=== PATIENT | male | born 1960 | race Caucasian/White ===

== ENCOUNTER 2019-02-22 18:25 | Inpatient (IN) | payer OTHER ==
[~2019-02-22] VITALS: Ht 167.6 cm; Wt 48.1 kg
[2019-02-22 19:15] VITALS: BP_SYST 106
--- NOTE | 2019-02-22 19:42 | NUR ---
Patient to ER bed H1 to gown for evaluation. Side rails up.
--- NOTE | 2019-02-22 20:59 | NUR ---
PT MOVED TO ROOM 7.
--- NOTE | 2019-02-22 21:16 | NUR ---
Patient brought to ED via ambulance for complaint of fall today in AM. Mother states that since fall, ric has been experiencing increased shaking. No report of KO. 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 Patient reported to have stopped walking 2 weeks ago and has been spitting out food x1 week ago. Mother is primary vp sales and states it has become increasingly difficult to care for patient. Patient noted to be cachectic.
--- NOTE | 2019-02-22 21:22 | NUR ---
ER MD Sarmiento at bedside for medical evaluation.
[2019-02-22] MEDS ORDERED: PIPERACILLIN/TAZO 3.375 GM in NS 50 ML IV ONE (21:30)
[2019-02-22] MEDS ORDERED: NACL 0.9% 1,000 ML IV ONE (21:30)
--- NOTE | 2019-02-22 21:36 | NUR ---
# 18 gauge angiocath placed to RAC. Use of asceptic technique. Opsite placed over site. Blood return noted. Blood for lab drawn from site. Flushed with 10 cc of normal saline. No evidence of infiltration noted. Patient tolerated well.
[2019-02-22 22:05] LABS: BASOPHILS % (AUTO) 0.4 % (0.0-2.0); EOSINOPHILS % (AUTO) 0.1 % (0.0-4.0); HEMOGLOBIN 13.4 g/dL (14.0-18.0); LYMPHOCYTES # (AUTO) 1.2 K/uL (1.0-5.5); LYMPHOCYTES % (AUTO) 18.4 % (20.5-51.5); MEAN CORPUSCULAR HEMOGLOBIN 34 pg (27-31); MEAN CORPUSCULAR HGB CONC 34 % (32-36); MEAN CORPUSCULAR VOLUME 97 fL (79.0-98.0); MONOCYTES # (AUTO) 0.4 K/uL (0.0-1.0); MONOCYTES % (AUTO) 5.9 % (1.7-9.3); NEUTROPHILS % (AUTO) 75.2 % (40.0-70.0); PLATELET COUNT (AUTO) 309 K/uL (130-430); RED BLOOD CELL COUNT(AUTO) 4.01 MIL/uL (4.2-6.2); RED CELL DISTRIBUTION WIDTH 14.3 % (9.0-15.0); WHITE BLOOD COUNT (AUTO) 6.6 K/uL (4.8-10.8)
[2019-02-22] MEDS ORDERED: PIPERACILLIN/TAZOBACTAM 3.375 GM/VIAL (ZOSYN) IV ONE (22:06)
[2019-02-22 22:12] LABS: CALCIUM 9.2 mg/dL (8.4-11.0); CREATININE 0.92 mg/dL (0.55-1.30); POTASSIUM 4.6 mmol/L (3.5-5.1)
[2019-02-22 22:27] LABS: ALBUMIN 2.9 g/dL (3.4-4.8); THYROID STIMULATING HORMONE 10.26 uIu/mL (0.36-3.74); TOTAL BILIRUBIN 0.8 mg/dL (0.0-1.0)
[2019-02-22] MEDS ORDERED: LORazepam 2 MG/ML VIAL IVP ONE (22:45)
--- NOTE | 2019-02-22 23:16 | NUR ---
# 16 FR Ascencio catheter with use of sterile technique. Immediate return of 20 cc becky urine noted. Bedside drainage bag placed below level of bladder. Urine sample collected and sent to lab. Pt tolerated procedure well.
[2019-02-22 23:34] LABS: BILIRUBIN,URINE NEGATIVE (NEGATIVE); BLOOD, URINE NEGATIVE (NEGATIVE); CLARITY/URINE CLEAR (CLEAR); COLOR,URINE YELLOW (YELLOW); GLUCOSE,URINE NEGATIVE (NEGATIVE); KETONES,URINE NEGATIVE (NEGATIVE); LEUKOCYTE ESTERASE ,URINE NEGATIVE (NEGATIVE); NITRITE, URINE NEGATIVE (NEGATIVE); PH,URINE 5.5 (5.0-8.0); PROTEIN URINE NEGATIVE (NEGATIVE); UROBILINOGEN,URINE 0.2 (0.2-1.0)
[2019-02-22] MEDS ORDERED: LORA10TA7 PO (23:48)
[2019-02-22] MEDS ORDERED: SERT50TA12 PO (23:48)
[2019-02-22] MEDS ORDERED: BACL10TA PO (23:48)
--- NOTE | 2019-02-22 23:48 | NUR ---
Medication reconciliation completed with information provided by patient. Any prior medication reconciliation on file was reviewed and corrected.
--- NOTE | 2019-02-22 23:50 | NUR ---
End of life care decisions discussed with patient by Dr. Sarmiento. Opportunity for questions and concerns addressed. Patient's code status is FULL CODE, paperwork completed and placed in chart.
--- NOTE | 2019-02-23 | NUR ---
No adverse reactions noted after medication administration. Will continue to monitor.
--- NOTE | 2019-02-23 02:00 | NUR ---
Patient resting on gurney. No acute respiratory distress noted.
[2019-02-23] MEDS ORDERED: ACETAMINOPHEN 650 MG/20.3 ML UDC PO PRN (04:00)
--- NOTE | 2019-02-23 04:04 | NUR ---
Patient will be admitted to care of DR. MYLES. Admitted to TELEMETRY unit. Will go to room 135. Complete and up to date summary report printed. SBAR report to be given at bedside with opportunity for questions.
--- NOTE | 2019-02-23 05:00 | NUR ---
ADMISSION NOTE Received patient from ER via [facility]. Patient admitted with diagnosis of Augusta's disease, Failure to Thrive. Patient is awake, alert, oriented X2. Patient oriented to hospital room, call light, toileting, pain management and safety-teach back done. Patient informed that Melanie will be his nurse and that their room number is 132C. Personal belongings checked and Belongings List documented. Call light within reach.
[2019-02-23 05:27] VITALS: BP_SYST 104
--- NOTE | 2019-02-23 05:53 | NUR ---
Photographs taken of impaired skin integrity.
--- NOTE | 2019-02-23 05:55 | NUR ---
CONSULT: CONSULT CALLED FOR DR. PEREA. Ignacia I SPOKE WITH CHARISALLA LEBLANC REASON FOR CONSULT: MADISYN'S DISEASE REQUESTING CONSULT: DR. MYLES POST TRONIC MACHINE OPERATOR PHONE NUMBER: [phone]
--- NOTE | 2019-02-23 06:37 | NUR ---
CALLED/LEFT MESSAGE YOLANDA SPEECH THERAPIST FOR CONSULT.
--- NOTE | 2019-02-23 07:06 | NUR ---
Closing notes Patient is resting in bed, sleeping. No signs of distress noted. Breathing even and unlabored. IV patent and intact, no signs of infiltration noted. All needs met throughout the shift. Call light with the patient. Safety precautions in place. Will endorse care to day shift RN.
--- NOTE | 2019-02-23 07:30 | NUR ---
OPENING NOTES: RECEIVED PATIENT FROM PHYSICAL SECURITY SPECIALIST NURSE. PATIENT IS ASLEEP IN BED. NO SIGNS OF DISTRESS OR SHORTNESS OF BREATH NOTED. PATIENT IS TOLERATING OXYGEN AT ROOM AIR. IV SITE IS PATENT WITH NO SIGNS OF INFILTRATION. SANDERS CATHETER INTACT AND DRAINING BY GRAVITY. PATIENT IN STABLE CONDITION. SAFETY, FALL, ASPIRATION AND SEIZURE PRECAUTIONS ARE IN PLACE. BED IS LOCKED IN LOWEST POSITION WITH CALL LIGHT IN REACH. WILL CONTINUE TO MONITOR PATIENT FOR ANY CHANGES.
[2019-02-23] MEDS ORDERED: LEVOTHYROXINE SODIUM 0.05 MG TABLET PO ONE (07:45)
[2019-02-23 08:00] VITALS: BP_SYST 121
[2019-02-23] MEDS: SERTRALINE HCL 50 MG TABLET PO SCH (09:00)
[2019-02-23] MEDS: LORATADINE 10 MG TABLET PO SCH (09:00)
--- NOTE | 2019-02-23 10:05 | NUR ---
Nutrition Update Keith Scale 15 noted. Pt admitted for Ron's Disease and Failure to Thrive Diet: Odilon BMI: 16.9 kg/m2 RD to follow per nutrition care standards.
--- NOTE | 2019-02-23 10:14 | NUR ---
MD ROUNDS: DR. MYLES MAKING HER ROUNDS. AWARE OF PATIENT'S CONDITION. NEW ORDERS GIVEN.
--- NOTE | 2019-02-23 10:15 | NUR ---
RN ROUNDS: PATIENT IS AWAKE AND ALERT x2 LAYING DOWN IN BED. FAMILY AT BEDSIDE. NO SIGNS OF DISTRESS OR SHORTNESS OF BREATH NOTED. PATIENT IN STABLE CONDITION. WILL CONTINUE TO MONITOR PATIENT FOR ANY CHANGES.
--- NOTE | 2019-02-23 11:00 | NUR ---
DCPA and Band Sewer contact: ASSEMBLER SKYLIGHTS met with Pt. and mother at bedside for DCPA and Social Service contact. 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 He resides with his mother who is his full-time caregiver. Mother Mary stated that she is having difficulty with his care and is considering having him go in a SNF or B/C. Pt. has declined in his mobility during the last month, unsteady gait, he lost control of his BM, and has not been eating properly over the last week. Pt. has [employer] insurance, receives SSI, no IHSS, he has not accessed SNF/HH in the past. Care has always been at home . Pt. is unable to manage his ADLs independently. He has a wheelchair and walker at home but does not utilize it regularly. Pt. is pending swallow eval and further testing. CM, DCP, and SS will remain available as needed.
--- NOTE | 2019-02-23 11:30 | NUR ---
DCPA and Bunker Worker Contact ASSET ADMINISTRATOR met with Pt. and mother at bedside for DCPA and Social Service contact. 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 He resides with his mother who is his full-time caregiver. Mother Mary stated that she is having difficulty with his care and is considering having him go in a SNF or B/C. Pt. has declined in his mobility during the last month, unsteady gait, he lost control of his BM, and has not been eating properly over the last week. Pt. has [employer] insurance, receives SSI, he has not accessed SNF/HH in the past. Care has always been at home . Pt. is unable to manage his ADLs independently per mother due to decompensating. He has a wheelchair and walker at home but does not utilize it regularly. Pt. is pending swallow eval and further testing. No social service need or concern expressed at this time. CM, DCP, and SS will remain available as needed. Addendum: 02/23/19 at 1449 by Casie Roy LCSW Duplicate note entered in Error
[2019-02-23 12:15] VITALS: BP_SYST 132
[2019-02-23 12:21] VITALS: BP_SYST 132
--- NOTE | 2019-02-23 12:30 | NUR ---
RN ROUNDS: PATIENT IS AWAKE AND ALERT x2 LAYING DOWN IN BED. IV SITE IS PATENT WITH NO SIGNS OF INFILTRATION. PATIENT CLEANED AND TURNED. NO SIGNS OF DISTRESS OR SHORTNESS OF BREATH NOTED. PATIENT IN STABLE CONDITION. WILL CONTINUE TO MONITOR PATIENT FOR ANY CHANGES.
[2019-02-23] MEDS: POTASSIUM CHLORIDE 10 MEQ in NACL 0.9% 1,000 ML IV SCH (12:33)
--- NOTE | 2019-02-23 14:10 | NUR ---
RN ROUNDS: PATIENT IS AWAKE AND ALERT x2 LAYING DOWN IN BED. PATIENT DENIES ANY PAIN AT THE MOMENT. NO SIGNS OF DISTRESS OR SHORTNESS OF BREATH NOTED. PATIENT IN STABLE CONDITION. WILL CONTINUE TO MONITOR PATIENT FOR ANY CHANGES.
--- NOTE | 2019-02-23 15:31 | NUR ---
S.T. SWALLOW EVAL SWALLOW EVAL COMPLETED. 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 NO S/S OF ASPIRATION. REC: PUREE DIET. THIN LIQUIDS OK. ALLOW EXTRA TIME FOR MEALS. NURSE ROBEL NOTIED. [id number] CK G8997 CK G8998 CK NOMS LEVEL 4
--- NOTE | 2019-02-23 16:00 | NUR ---
RN ROUNDS: PATIENT IS AWAKE AND ALERT x2 LAYING IN BED ASKING WHEN THE NEUROLOGIST WILL BE COMING IN. I INFORMED THE PATIENT I DON'T HAVE A SPECIFIC TIME FRAME TO GIVE HIM. PATIENT PASSED THE SWALLOW EVALUATION AND ASKED FOR SOMETHING TO EAT. APPLESAUCE WAS GIVEN TO THE PATIENT AND HE TOLERATED IT WELL. SIPS OF WATER WERE ALSO GIVEN THROUGH A STRAW AND HE TOLERATED THAT WELL. NO SIGNS OF DISTRESS OR SHORTNESS OF BREATH NOTED. PATIENT IN STABLE CONDITION. WILL CONTINUE TO MONITOR PATIENT FOR ANY CHANGES.
[2019-02-23 16:13] VITALS: BP_SYST 95
--- NOTE | 2019-02-23 18:47 | NUR ---
CLOSING NOTES: PATIENT IS AWAKE AND ALERT x2 IN BED. FAMILY AT BEDSIDE. NO SIGNS OF DISTRESS OR SHORTNESS OF BREATH NOTED. PATIENT IS TOLERATING OXYGEN AT ROOM AIR. IV SITE IS PATENT WITH NO SIGNS OF INFILTRATION. SANDERS CATHETER INTACT AND DRAINING BY GRAVITY. PATIENT IN STABLE CONDITION. SAFETY, FALL, ASPIRATION AND SEIZURE PRECAUTIONS REMAINED IN PLACE THROUGHOUT THE SHIFT. BED IS LOCKED IN LOWEST POSITION WITH CALL LIGHT IN REACH. WILL ENDORSE PATIENT CARE TO ONCOMING VITICULTURIST NURSE.
--- NOTE | 2019-02-23 19:20 | NUR ---
RECEIVED REPORT ON PATIENT FROM 7AM CRISTEL HUSTON. PATIENT AA0X3, WITH DIFFICULTY SPEAKING DUE TO DISEASE PROCESS. SKIN W/D TO TOUCH, IV SITE INTACT NO S/S INFILTRATION, 20 G TO R AC, W/ IVPB INFUSING. FRANKLIN, W/ MARKED WEAKNESS, NAD NOTED.
[2019-02-23 20:19] VITALS: BP_SYST 112; BP_SYST 138
[2019-02-23] MEDS: BACLOFEN 10 MG TABLET PO PRN (21:49)
--- NOTE | 2019-02-23 22:00 | NUR ---
MED PASS, NSG ASSESSMENT COMPLETED. PT TOLERATED PO MEDS AND FLUIDS WELL WITH A SLOW PROCESS. TOSLING AND TURNING IN BED W / UNCONTROLLABLE MOVEMENTS, ASLEEP AT INTERVALS, NAD NOTED.
[2019-02-24] VITALS: BP_SYST 113
--- NOTE | 2019-02-24 01:00 | NUR ---
ON ROUNDS: IV IS OUT, PT ASLEEP AT PRESENT IN PRONE POSITION. RESTING QUIETLY
[2019-02-24] MEDS: POTASSIUM CHLORIDE 10 MEQ in NACL 0.9% 1,000 ML IV SCH ×2 (03:55→07:15)
--- NOTE | 2019-02-24 04:00 | NUR ---
NEW IV RE- INSERTED TO L UPPER ARM AND WRAPPED WITH KERLIX. PT TOLERATED WELL. IVF INFUSING PER ORDERS VIA IV PUMP.
[2019-02-24 04:11] VITALS: BP_SYST 129
--- NOTE | 2019-02-24 07:15 | NUR ---
PT ENDORSED TO ROBEL 7 AM RN. PT RESTING QUIETLY NAD NOTED. STATUS REMAINS UNCHANGED.
--- NOTE | 2019-02-24 07:30 | NUR ---
OPENING NOTES: RECEIVED PATIENT FROM PLACEMENT MANAGER NURSE. PATIENT IS AWAKE AND ALERT x2 LAYING DOWN IN BED. NO SIGNS OF DISTRESS OR SHORTNESS OF BREATH NOTED. PATIENT IS TOLERATING OXYGEN AT ROOM AIR. IV SITE IS PATENT WITH NO SIGNS OF INFILTRATION. SANDERS CATHETER INTACT AND DRAINING BY GRAVITY. PATIENT IN STABLE CONDITION. SAFETY, FALL, ASPIRATION AND SEIZURE PRECAUTIONS ARE IN PLACE. BED IS LOCKED IN LOWEST POSITION WITH CALL LIGHT IN REACH. WILL CONTINUE TO MONITOR PATIENT FOR ANY CHANGES.
[2019-02-24 08:00] VITALS: BP_SYST 140
[2019-02-24] MEDS: LEVOTHYROXINE SODIUM 0.05 MG TABLET PO SCH (08:07)
[2019-02-24] MEDS: SERTRALINE HCL 50 MG TABLET PO SCH (08:47)
[2019-02-24] MEDS: LORATADINE 10 MG TABLET PO SCH (08:47)
--- NOTE | 2019-02-24 10:05 | NUR ---
RN ROUNDS: PATIENT IS AWAKE AND ALERT x2 LAYING DOWN IN BED. NO SIGNS OF DISTRESS OR SHORTNESS OF BREATH NOTED. FAMILY AT BEDSIDE. PATIENT IN STABLE CONDITION. WILL CONTINUE TO MONITOR PATIENT FOR ANY CHANGES.
--- NOTE | 2019-02-24 11:40 | NUR ---
DC SANDERS: DISCONTINUED SANDERS PER DR. MYLES'S ORDERS. PATIENT TOLERATED WELL. WILL CONTINUE TO MONITOR PATIENT FOR ANY CHANGES.
--- NOTE | 2019-02-24 12:00 | NUR ---
DC PLANNING: BOB[facility] FAXED DC PLANNING ORDER FOR SNF FOR PT TO [facility] ([facility]) @ [phone], [phone]. PER [facility], CASE IS CURRENTLY BEING REVIEWED BY THEIR STILL PUMP OPERATOR. [facility] WILL CALL BACK IF IT IS APPROVED OR DENIED FOR SNF. Addendum: 02/24/19 at 1401 by Korina Shah RN RECEIVED A CALL FROM [facility] ( [facility]) STATING THEIR STILL PUMP OPERATOR HAS APPROVED FOR SNF AND TO TRY THE FOLLOWING [facility]ED [facility] [place]. IF ACCEPTED TO ONE OF THE SNF TO CONTACT [facility] AND SHE WILL PROVIDE FOR THE AUTHORIZATION. TRANSPORTATION AUTH [id number] AND TO USE [facility]. DCP MADE AWARE. Addendum: 02/24/19 at 1647 by Awilda SEGURA ELLIOT was contacted by Josefa at [facility] (f [phone]) [facility] ELLIOT faxed the full packet. TRANSPORTATION AUTH [id number] AND TO USE [facility] arraned for Will Call pending room number.ELLIOT lm for Adina to call nurse station with room number.
[2019-02-24 12:35] VITALS: BP_SYST 121
--- NOTE | 2019-02-24 14:19 | NUR ---
RN ROUNDS: PATIENT IS ASLEEP IN BED. NO SIGNS OF DISTRESS OR SHORTNESS OF BREATH NOTED. PATIENT IN STABLE CONDITION. WILL CONTINUE TO MONITOR PATIENT FOR ANY CHANGES.
[2019-02-24 16:30] VITALS: BP_SYST 101
--- NOTE | 2019-02-24 17:22 | NUR ---
Dietitian Recommendations * Continue pureed diet. tray comes standard w/ Ensure Enlive TID (ONS provides 1050 kcal/day, 60 gm protein/day) * Provide snacks BID (ice cream, applesauce, smoothie, pudding, yogurt) LP, RD Please refer to Nutrition Assessment for details. Signed: 02/24/19 at 1722 by Janie DUTTA <Co-Signature Required> Co-Signed: 02/24/19 at [address] Addendum: 02/24/19 at 1723 by Janie DUTTA Amended: Links added.
--- NOTE | 2019-02-24 18:59 | NUR ---
CLOSING NOTES: PATIENT IS ASLEEP LAYING DOWN IN BED. NO SIGNS OF DISTRESS OR SHORTNESS OF BREATH NOTED. PATIENT IS TOLERATING OXYGEN AT ROOM AIR. IV SITE IS PATENT WITH NO SIGNS OF INFILTRATION. PATIENT IN STABLE CONDITION. SAFETY, FALL, ASPIRATION AND SEIZURE PRECAUTIONS REMAINED IN PLACE THROUGHOUT THE SHIFT. BED IS LOCKED IN LOWEST POSITION WITH CALL LIGHT IN REACH. WILL ENDORSE PATIENT CARE TO ONCOMING EXPERIENCE DESIGNER NURSE.
--- NOTE | 2019-02-24 19:30 | NUR ---
RECEIVED REPORT FROM 7AM CRISTEL HUSTON. PATIENT AAOX3, SKIN W/D TO TOUCH, FRANKLIN W/ POS. PULSES AND MARKED WEAKNESS. SKIN W/ OLD SCRATCHES THAT ARE SELF INJURIOUS. PT W/ UNCONTROLLED INVOLUNTARY MOVEMENTS. BEDRIDDEN ABLE TO COMMUNICATE AND RESPOND TO SIMPLE CONVERSATION. PT IN NAD, WILL CONT TO MONITOR.
[2019-02-24 20:00] VITALS: BP_SYST 123
[2019-02-24] MEDS: HALOPERIDOL 1 MG TABLET (HALDOL) PO SCH (21:54)
--- NOTE | 2019-02-24 23:30 | NUR ---
MED PASS, NSG ASSESSMENT, PM CARE DONE W/ LINEN CHANGE, PT TOLERATED WELL. MADE COMFORTABLE, RESTING QUIETLY.
[2019-02-25 00:37] VITALS: BP_SYST 106
--- NOTE | 2019-02-25 01:20 | NUR ---
ON ROUNDS, NO CHANGE IN STATUS, PT ASLEEP, W/ INTERVALS OF INVOLUNTARY GROSS MOTOR MOVEMENTS. WILL CONT TO MONITOR FOR CHANGES.
--- NOTE | 2019-02-25 04:00 | NUR ---
ON ROUNDS PT AWAKE, COMPLETE BED BATH AND LINEN CHANGE DUE TO LARGE BM, AND INCT URINE OUTPUT. PATIENT TOLERATED WELL, AND SAID "THANK YOU". MADE COMFORTABLE.
[2019-02-25] MEDS: LEVOTHYROXINE SODIUM 0.05 MG TABLET PO SCH (07:02)
--- NOTE | 2019-02-25 07:30 | NUR ---
REPORT GIVEN TO CHEMA URBINA RN AT BEDSIDE. NO CHANGE IN PATIENT STAUS, AT PRESENT ASLEEP, IN NAD. PT IS PENDING D/C PLACEMENT TO A SNF.
[2019-02-25 08:00] VITALS: BP_SYST 154
--- NOTE | 2019-02-25 08:00 | NUR ---
ASSUMPTION OF CARE: RECEIVED PT AWAKE/ALERT/ORIENTED TO NAME SITUATION, DX:RISK FOR INJURY, R/T MADISYN'S DS, FAILURE TO THRIVE. NO S/S OF DISTRESS, HAS INVOLUNTARY MOVEMENT OF EXTREMITIES AND BODY, VSS, AFEBRILE, BREATH SOUNDS ARE CLEAR, BREATHING UNLABORED, FALL PRECAUTIONS IN PLACE, ORIENTED TO CALL LIGHT, PLACED WITHIN REACH, WILL CONT' WITH POC.
--- NOTE | 2019-02-25 09:30 | NUR ---
SCOWMAN: MORNING MEDS GIVEN, PER ORDERED BY Cole, TOLERATED WELL, WILL CONT' TO MONITOR AND ACCESS.
[2019-02-25] MEDS: SERTRALINE HCL 50 MG TABLET PO SCH (09:59)
[2019-02-25] MEDS: LORATADINE 10 MG TABLET PO SCH (09:59)
[2019-02-25] MEDS: HALOPERIDOL 1 MG TABLET (HALDOL) PO SCH ×3 (10:01→23:37)
--- NOTE | 2019-02-25 12:00 | NUR ---
NURSES NOTES: PT REMAINS STABLE, REPOSITIONED FOR COMFORT, NO S/S OF DISTRESS, ABLE TO COMMUNICATE NEEDS, CALL LIGHT WITHIN REACH, WILL CONT' WITH POC.
--- NOTE | 2019-02-25 12:18 | NUR ---
Case mgt: I rec'd order for dc to SNF--pt has not been in SNF prior to now--I called marielena (Luciana) at [facility] [phone]--they will have Rashida, their case briefer, call me back--YUAN FAM Addendum: 02/25/19 at 1321 by Randi Calabrese RN Case mgt: Lopez Field at [facility], contracted snfs are: [facility], [facility]--I faxed to [facility] fax#[phone] lopez Barrett at [facility] [phone]--YUAN FAM
[2019-02-25 12:55] VITALS: BP_SYST 101
--- NOTE | 2019-02-25 15:00 | NUR ---
NURSES NOTES: PT IN BED, HAVING IN INVOLUNTARY MOVEMENT OF EXTREMITIES, RESPONSIVE TO VERBAL STIMULI, ANSWERS QUESTIONS APPROPRIATELY, IS COOPERATIVE WITH TX, REORIENTED TO CALL LIGHT, PLACED WITHIN REACH, NEEDS MET, WILL CONT' TO MONITOR AND ASSESS.
--- NOTE | 2019-02-25 15:13 | NUR ---
Case mgt: [facility] cannot take pt--I reviewed notes and found that referral was also made to [facility] and that Adina had received auth from [facility]--I called [facility] nursing station at [phone]-S/W Maira-I explained that [facility] had given the auth to Adina, and that I needed the bed #--Maira will have Adina call me back-YUAN FAM Addendum: 02/25/19 at 1630 by Randi Calabrese RN I called [facility] again at [phone]--no call back from Adina yet--s/w utilities and maintenance supervisor Aylin regarding transfer--still waiting to get bed#-Aylin will call her DON as per our documentation, they received the authorization from [facility] already--I will update charge nurse Angela and take transfer packet to nursing station.
--- NOTE | 2019-02-25 18:00 | NUR ---
END OF SHIFT: PT REMAINS STABLE, NO SIGNIFICANT CHANGES NOTED, CALL LIGHT PLACED WITHIN REACH, WILL CONT' TO MONITOR AND ASSESS, WILL ENDORSE TO ASSEMBLER CHASSIS NURSE.
--- NOTE | 2019-02-25 19:20 | NUR ---
initial notes: pt is on bed alert awake, oriented x 3, no pain,no sob.stable vital sign. uncontrolled movement due pt condition. iv lock to left ac- intact and patent. pt has multiple scabs. pt is incontinent of bnb. try to explain plan opf care to pt. unable to due pt condition. needs attended. call light in reach. padded rails up. low bed position. will monitor.
[2019-02-25 19:30] VITALS: BP_SYST 116
--- NOTE | 2019-02-25 22:00 | NUR ---
pt is awake alert, no distress, uncontrolled movement. stable. safety on. will monitor.
--- NOTE | 2019-02-26 | NUR ---
sleeping, quietly, no pain. not distress. no uncontrolled movement. stable. will monitor.
[2019-02-26 00:44] VITALS: BP_SYST 109
--- NOTE | 2019-02-26 02:00 | NUR ---
resting, comfortable. stable. no uncontrolled movement. safety on. will monitor.
--- NOTE | 2019-02-26 04:00 | NUR ---
sleeping, comfortable. no sob. not distress. stable. safety on. padded rails up. will monitor.
--- NOTE | 2019-02-26 06:00 | NUR ---
pt is awake, alert. clean by hat blockerchuy carrion, stable. needs attended. safety on. bed alarm on. brianna monitor.
[2019-02-26] MEDS: LEVOTHYROXINE SODIUM 0.05 MG TABLET PO SCH (06:08)
--- NOTE | 2019-02-26 07:10 | NUR ---
closing: pt is awake, alert. uncontrolled movement seen, stable. needs attended the whole shift, iv lock intact, safety on. low be positiotn and lock and alarm. bedside report given to am rn.
[2019-02-26 08:00] VITALS: BP_SYST 110
--- NOTE | 2019-02-26 09:30 | NUR ---
CLAY HOISTER: MORNING MEDS GIVEN, PER ORDERED BY Cole, TOLERATED WELL, WILL CONT' TO MONITOR AND ACCESS.
--- NOTE | 2019-02-26 10:21 | NUR ---
DC Planning: f/u for bed at [facility] [phone]: per Maira she will contact [facility] for the bed assignment. Addendum: 02/26/19 at 1349 by Rommel Alvarez RN I called [facility] again at [phone]--no call back from Adina yet--Per Josie she will call her DON at home for bed and admission today.
[2019-02-26] MEDS: SERTRALINE HCL 50 MG TABLET PO SCH (10:28)
[2019-02-26] MEDS: HALOPERIDOL 1 MG TABLET (HALDOL) PO SCH (10:28)
[2019-02-26] MEDS: LORATADINE 10 MG TABLET PO SCH (10:28)
[2019-02-26 12:00] VITALS: BP_SYST 92
--- NOTE | 2019-02-26 15:30 | NUR ---
VISIT: AT BEDSIDE FOR ASSESSMENT OF PT, NEW ORDERS GIVEN, WILL CONT' WITH POC. Addendum: 02/26/19 at 1646 by María Elena Camacho RN WRONG PT
[2019-02-26 16:30] VITALS: BP_SYST 111
--- NOTE | 2019-02-26 19:00 | NUR ---
END OF SHIFT: PT REMAINS STABLE, NO SIGNIFICANT CHANGES NOTED, CALL LIGHT PLACED WITHIN REACH, WILL CONT' TO MONITOR AND ASSESS, WILL ENDORSE TO ORGAN ASSEMBLER NURSE.
[2019-02-26 20:00] VITALS: BP_SYST 116
[2019-02-27 00:29] VITALS: BP_SYST 132
[2019-02-27 08:45] VITALS: BP_SYST 110
[2019-02-27] MEDS: LEVOTHYROXINE SODIUM 0.05 MG TABLET PO SCH (09:42)
[2019-02-27] MEDS: SERTRALINE HCL 50 MG TABLET PO SCH (09:42)
[2019-02-27] MEDS: LORATADINE 10 MG TABLET PO SCH (09:42)
[2019-02-27] MEDS: BACLOFEN 10 MG TABLET PO PRN (09:42)
[2019-02-27] MEDS: HALOPERIDOL 1 MG TABLET (HALDOL) PO SCH ×2 (09:47→21:56)
--- NOTE | 2019-02-27 10:24 | NUR ---
Discharge Planning: DCP followed up with at [facility] (f [phone] p [phone]) faxed updated PT notes. will follow up with Adina at [facility], bria stll taking patient. Addendum: 02/27/19 at 1439 by Awilda Medina DP Adina at [facility] declined. DCP spoke to at [facility] (f [phone] p [phone]) family looking fo humanities department chair, DCP will send faxed to [facility] and [facility]. ELIEP to follow up. Addendum: 02/27/19 at 1650 by Awilda Medina DP DCP spoke to Anabel (C [phone] p [phone]) at [facility] will give to DON to review.
[2019-02-27 12:37] VITALS: BP_SYST 98
--- NOTE | 2019-02-27 14:27 | NUR ---
Nutrition F/U RD reviewed pt's current EMR including diet Hx, physician notes, nursing notes, pertinent labs/meds/procedures, care trends and care activity. Current Diet Order: Pureed diet x 4 days Subjective information: Pt seen resting in bed, covered in blankets at time of visit earlier this morning. Per RN report, no N/V this morning. Patient is tolerating diet. Last BM 02/27. Per EMR, PO intake is good 90% average of 3 meals 02/26/. Current diet remains appropriate. Current PO intake: Good 90% average of 3 meals 02/26 Estimated Energy Expenditure (kcals/day) 8099-8625 kcal/day (30-35 kcal/kg IBW for wt promotion) Estimated Protein Required (g/day) 78-98 gm/day (1.2-1.5 kcal/kg IBW for wt promotion) Estimated Fluid Required (l/day) 2-2.3 L/day (1 mL/kcal/day for maintenance) Problem/Etiology/Signs/Symptoms Malnutrition related to possible suboptimal nutrient intake as evidenced by BMI of 16.9 kb/m2, 75% IBW, and thin appearance. (*ongoing) Expected Outcomes/Goals - Monitor appetite and PO intake w/ goals of pt meeting at least 85% of estimated nutritional needs, labs trending WNL, normal GI function, and skin integrity/ wt maintenance. Dietitian Recommendations * Continue pureed diet. tray comes standard w/ Ensure Enlive TID (ONS provides 1050 kcal/day, 60 gm protein/day) * Provide snacks BID (ice cream, applesauce, smoothie, pudding, yogurt) Follow Up High Risk: F/U in 2-3days
--- NOTE | 2019-02-27 14:30 | NUR ---
Dietitian Recommendations * Continue pureed diet. tray comes standard w/ Ensure Enlive TID (ONS provides 1050 kcal/day, 60 gm protein/day) * Provide snacks BID (ice cream, applesauce, smoothie, pudding, yogurt) SANTOS, RD
--- NOTE | 2019-02-27 14:38 | NUR ---
DC PLANNING Spoke w mother Mary, ph [phone], @ bedside. Agreeable w SNF for short term, any contracted w insurance. States after short term SNF is going to want pt to go to [facility] due to pt has declined in mobility past 3 months & is having hard time taking care of pt now. Lives in mobile home w 5 steps & pt now not able to ambulate. She is pt's primary caregiver. Per mother pt has Medi-venice also. Called & left msg w Patricia insurance examiner to check pt's Medi-venice. Updated dc case planner.
[2019-02-27 16:24] VITALS: BP_SYST 108
--- NOTE | 2019-02-27 19:08 | NUR ---
PHYSICAL THERAPY CO-SIGN The Physical Therapy Progress Notes documented by Fingernail Former have been reviewed. Reviewed/Co-Signed by: Debbie Boyd PT Documentation Done by:TONE BAZAN REVIEWED W/ ARASELI Addendum: 02/27/19 at 1909 by Debbie Boyd PT Amended: Links added.
--- NOTE | 2019-02-27 19:15 | NUR ---
CHANGE OF SHIFT; pt. awake, alert when received, gets restless and like thrashing himself in bed, especially when he moves. on seizure precautions, padded side rails. on fall risk precautions.
--- NOTE | 2019-02-27 20:30 | NUR ---
NOTES: pt. been trashing in bed, follow simple commands, verbally responsive but sometimes hard to understand. IV lock on left antecubital. pt. very skinny , bony parts appears reddened. moves a lot all extremities and stays on position. side rails up and padded.
[2019-02-27 21:00] VITALS: BP_SYST 101
--- NOTE | 2019-02-27 21:30 | NUR ---
NOTES: complete linen changed, gown and katarina care done with SWIFT TENDER, incontinent of urine and stool. repositioned. on fall risk precautions.
--- NOTE | 2019-02-27 23:00 | NUR ---
NOTES: pt. sleeping when checked, no acute distress. fall risk precautions observed.
[2019-02-28 00:22] VITALS: BP_SYST 99
--- NOTE | 2019-02-28 01:00 | NUR ---
NOTES: pt. sleeping but he's been all around the bed, fall risk precautions. padded side rails, bed alarm on for safety.
--- NOTE | 2019-02-28 03:00 | NUR ---
NOTES: condition unchanged. still thrashing in bed, keep bed alarm on for safety. continue to monitor.
--- NOTE | 2019-02-28 04:30 | NUR ---
NOTES: condition unchanged. sleeping on and off.
--- NOTE | 2019-02-28 06:00 | NUR ---
NOTES: pt. incontinent of urine and stool, kept clean and dry. bed alrm on. fall risk precautions.
--- NOTE | 2019-02-28 06:45 | NUR ---
CLOSING NOTES; pt. lready awake, instructed to sleep more, still thrashes in bed, no acute distress. IV lock patent.
[2019-02-28] MEDS: LEVOTHYROXINE SODIUM 0.05 MG TABLET PO SCH (07:01)
--- NOTE | 2019-02-28 07:35 | NUR ---
opening note patient is resting in bed, no signs of distress at this time, educated refrigerated national truck driver light system and plan of care, patient nodded head and said "okay" to me, IV dressing in tact with no IVF running, bed in lowest position, side rails up, call light within reach, fall/safety and aspiration precautions in place.
[2019-02-28 08:09] VITALS: BP_SYST 109
[2019-02-28] MEDS: HALOPERIDOL 1 MG TABLET (HALDOL) PO SCH ×2 (08:49→21:54)
[2019-02-28] MEDS: SERTRALINE HCL 50 MG TABLET PO SCH (08:49)
[2019-02-28] MEDS ORDERED: LORATADINE 10 MG TABLET PO PRN (09:00)
--- NOTE | 2019-02-28 10:25 | NUR ---
rounds patient is resting in bed, raising legs up and down, patient asked for some water and applesauce, no other needs at this time, fall/safety precautions in place, no signs of distress at this time.
[2019-02-28 12:00] VITALS: BP_SYST 102
--- NOTE | 2019-02-28 12:55 | NUR ---
fed patient patient is resting in bed, assisted patient with eating, patient tolerated well, fall/safety and aspiration precautions in place, no signs of distress at this time.
--- NOTE | 2019-02-28 14:05 | NUR ---
changed patient changed patient's gown, no other needs addressed at this time, fall/safety precautions in place.
--- NOTE | 2019-02-28 16:45 | NUR ---
rounds patient is resting in bed, raising legs up and down, no other needs at this time, fall/safety precautions in place, no signs of distress at this time.
[2019-02-28 16:50] VITALS: BP_SYST 114
[2019-02-28] MEDS ORDERED: FLU VACC QS2019-20 36MOS UP/PF 60 MCG/0.5 ML SYRINGE I.M. PRN (18:15)
--- NOTE | 2019-02-28 19:20 | NUR ---
CHANGE OF SHIFT; pt. awake, thrashing all over the bed, verbally responsive, on safety and seizure precautions. bed alarm on. will assess later.call light within reach.
--- NOTE | 2019-02-28 19:33 | NUR ---
closing note patient is resting in bed, no signs of distress at this time, IV dressing in tact with no IVF running, bed in lowest position, side rails up, call light within reach, fall/safety and aspiration precautions in place, will endorse report to noc shift nurse to continue with care.
--- NOTE | 2019-02-28 20:24 | NUR ---
PHYSICAL THERAPY CO-SIGN The Physical Therapy Progress Notes documented by Telecommunications Field Engineer have been reviewed. Reviewed/Co-Signed by: Debbie Boyd PT Documentation Done by:SAM SANTANA PTA PROGRESS MANAV Addendum: 03/01/19 at 1340 by Debbie Boyd PT Amended: Links added.
[2019-02-28 20:30] VITALS: BP_SYST 111
--- NOTE | 2019-02-28 20:30 | NUR ---
NOTES: VS checked. pt. keeps moving, incontinent of urine, SAP BUSINESS INTELLIGENCE CONSULTANT changed , kept dry. pt. reminded to keep still. for further observation.
--- NOTE | 2019-02-28 22:00 | NUR ---
NOTES: due med crushed with apple sauce and able to swallow. pt. needs attended. side rails padded for seizure precautions. bed alarm on.
[2019-03-01] VITALS: BP_SYST 147
--- NOTE | 2019-03-01 00:15 | NUR ---
NOTES: condition observed. been dozing on and off/ continuously moving in bed, set off bed alarm.
--- NOTE | 2019-03-01 02:30 | NUR ---
NOTES: continue to monitor, safety precautions, fall risk.
--- NOTE | 2019-03-01 04:17 | NUR ---
NOTES; pretty calm sleeping. condition unchanged.
--- NOTE | 2019-03-01 05:30 | NUR ---
NOTES: complete changed, katarina care, incontinent of urine. note skin reddened from thrashing in bed, applie Z juanita on both knees and leg, some skin excoriations and dry scabs. IV lock on left antecubital flushed.
--- NOTE | 2019-03-01 06:49 | NUR ---
CLOSING NOTES; pt. been sleeping on and off and thrashing all over the bed, side rails keep padded for seizure and fall precautions, bed alarm on. pt. room close to nurses station. for further care and assist, still waiting for placement. will endorse to day shift. call light at bedside, frequent rounds since pt. unable to use call light.
[2019-03-01] MEDS: LEVOTHYROXINE SODIUM 0.05 MG TABLET PO SCH (07:22)
--- NOTE | 2019-03-01 07:30 | NUR ---
opening note patient is resting in bed, no signs of distress at this time, educated juvenile probation officer light system and plan of care, patient nodded head and said "okay" to me, IV dressing in tact with no IVF running, bed in lowest position, side rails up, call light within reach, fall/safety and aspiration precautions in place.
[2019-03-01 08:00] VITALS: BP_SYST 126
[2019-03-01] MEDS: SERTRALINE HCL 50 MG TABLET PO SCH (08:40)
[2019-03-01] MEDS: HALOPERIDOL 1 MG TABLET (HALDOL) PO SCH ×2 (08:40→21:09)
[2019-03-01] MEDS: BACLOFEN 10 MG TABLET PO PRN (08:41)
--- NOTE | 2019-03-01 10:16 | NUR ---
rounds patient is resting in bed, tossing and turning, no signs of distress at this time, fall/safety precautions in place, no needs addressed at this time.
[2019-03-01 12:00] VITALS: BP_SYST 112
--- NOTE | 2019-03-01 12:34 | NUR ---
rounds patient is resting in bed, tossing and turning, no signs of distress at this time, fall/safety precautions in place, no needs addressed at this time.
--- NOTE | 2019-03-01 12:42 | NUR ---
DC PLANNING: BOBBY WITH DR. MLYES SPOKE WITH PATIENT'S MOTHER (MEETA) AT BEDSIDE REGARDING DC PLANNING. INFORMED PT'S MOTHER THAT NO SNF IS CURRENTLY ACCEPTING PATIENT AND INSURANCE IS ONLY COVERING HOSPITAL STAY UNTIL TODAY AND OPTION IS FOR PATIENT TO BE DISCHARGE TODAY HOME WITH HOME HEALTH. BOBBY EXPLAINED HOME HEALTH BENEFITS AND AFTER EXTENSIVE DISCUSSION WITH MOTHER, PATIENT'S MOTHER AGREED TO DISCHARGE PATIENT HOME WITH HOME HEALTH. PATIENT'S MOTHER WOULD LIKE PATIENT TO BE PLACED ON A NURSING FACILITY [facility]. HOWEVER, PATIENT DOES NOT HAVE ACTIVE MEDI-DENZEL. INFORMED PT MOTHER THAT REFERRAL TO MEDICAL WAS MADE TO SHIRIN AND [facility]ERON WOULD CONTACT HER FOR INFORMATION. PER MOTHER, PT IS RECEIVING ABOUT $2,000/MONTH FROM SOCIAL SECURITY. DISCUSS WITH MOTHER OPTION FOR A BOARD AND CARE THAT IS WITHIN HER BUDGET. BOBBY/NAN TO PROVIDE HER LIST OF BOARD AND CARE AROUND [place]. BOBBY SPOKE WITH [facility] (BOBBY @ [facility] @ REGARDING DC HOME WITH HOME HEALTH FOR PT. AND TO SETUP TRANSPORTATION. [facility] STATED SHE WILL CHECK IF THEY CAN APPROVED FOR TRANSPORTATION HOME. BOBBY FAXED DC ORDER FOR HOME WITH HOME HEALTH TO [facility] @
--- NOTE | 2019-03-01 13:00 | NUR ---
PT HAS BOTH LEGS IN AIR AND MOVING AROUND IN BED REDIRECTED PT
--- NOTE | 2019-03-01 13:40 | NUR ---
PHYSICAL THERAPY CO-SIGN The Physical Therapy Progress Notes documented by Supervisor Instrument Maintenance have been reviewed. Reviewed/Co-Signed by: Debbie Boyd PT Documentation Done by:SAM SANTANA HOGSHEAD HOOPER Addendum: 03/01/19 at 1341 by Debbie Boyd PT Amended: Links added.
--- NOTE | 2019-03-01 14:00 | NUR ---
PT HAS LEGS UP IN AIR AND SCOOTING TOWARDS FOOT OF BED TRYING TO PUT LEGS OVER RAIL REDIRECTED PT CHECK PT FOR LEIN CLEAN AND DRY GAVE FLUID TO PT
--- NOTE | 2019-03-01 14:28 | NUR ---
rounds patient is resting in bed, tossing and turning, no signs of distress at this time, fall/safety precautions in place, no needs addressed at this time.
--- NOTE | 2019-03-01 14:30 | NUR ---
DC PLANNING: TRANSPORTATION AUTH OBTAINED FROM [facility] (BOBBY @ [facility]) @ . AUTH # [id number]. CAN USE [facility] OR [facility]. HOWEVER, IF NOT BOTH NOT AVAILABLE CAN USE ANY AMBULANCE COMPANY HOSPITAL USED. PER [facility], SHE WILL CALL BACK FOR HOME HEALTH AGENCY NAME AND CONTACT NUMBER. TRANSPORTATION HAS BEEN SETUP WITH [facility] VIA BLS @ . SPOKE WITH JONNA (DISPATCH). AUTH NUMBER PROVIDED. BRIDGE WELDER TIME IS AT 8PM. BOBBY CONTACTED PATIENT'S MOTHER (BOONE) @ AND INFORMED HER THAT TRANSPORTATION IS SETUP FOR 8PM BRIDGE WELDER. ALSO, INFORMED HER THAT CM WILL LEAVE LIST OF BOARD AND CARE AND CAREGIVING AGENCY AT THE BEDSIDE TABLE AND WITH PATIENT'S DISCHARGE PACKET. Addendum: 03/01/19 at 1638 by Korina Shah RN BOBBY SPOKE WITH MUKUND [facility]ERINA [facility]HOURS AT [facility]) @ REGARDING HOME HEALTH SETUP. PER MUKUND, HOME HEALTH IS SETUP WITH [facility] @ P . BOBBY FAXED MUKUND UPDATED DC ORDER WITH HOME HEALTH FOR RN VISIT, PT VISIT AND HOME HEALTH AID. PER MUKUND, IT WILL STILL BE SAME HOME HEALTH ([facility] ). THEY WILL BE VISITING PATIENT AT HOME. PATIENT'S NURSE (OSVALDO) AND CHARGE NURSE NIDIA MADE AWARE OF THE DC HOME.
--- NOTE | 2019-03-01 15:00 | NUR ---
PT STILL MOVING AROUND IN BED PUTTING LEGS OVER RAIL PT WAS CLEANED AND DRY REDIRECTED PT NURSE AWARE
[2019-03-01] MEDS ORDERED: LEVO25TA7 PO (15:37)
[2019-03-01] MEDS ORDERED: HAL1 PO (15:38)
[2019-03-01 16:00] VITALS: BP_SYST 122
--- NOTE | 2019-03-01 16:18 | NUR ---
ROUNDS patient is resting in bed, gave him orange juice, patient tolerated well, no signs of distress at this time, no other needs addressed at this time, fall/safety and aspiration precautions in place.
--- NOTE | 2019-03-01 17:00 | NUR ---
PT THROWING LEGS OVER RAIL REDIRECTED PT CHANGE AND CLEAN PT PT CLAIM AND QUIET GAVE FLUIDS
--- NOTE | 2019-03-01 18:25 | NUR ---
FALL PATIENT FOUND LYING ON PRONE POSITION ON THE FLOOR, WITH BLEEDING NOTED ON THE RIGHT SIDE OF THE HEAD. ACCORDING TO ANDES LINE PILOT, SHE HEARD A LOUD NOISE IN ROOM 132 CLOSE TO THE NURSING STATION AND SAW PATIENT LYING ON THE FLOOR. PATIENT BACK TO BED WITH THE HELP OF SECURITY. VITAL SIGNS, ASSESSMENT DONE BY PRIMARY NURSE OSVALDO. NOTED WITH SLIGHT BLEEDING ON THE LEFT SIDE OF THE HEAD, SLIGHT REDNESS ON BOTH KNEE. PATIENT WAS STILL ALERT AND CONSCIOUS FOLLOWS COMMAND, ABLE TO MOVE AND BEND UPPER AND LOWER EXTREMITIES. NOTIFIED DR MYLES AND MADE AWARE OF RECENT FALL, TO HOLD DISCHARGE FOR NEUROLOGICAL OBSERVATION, CT HEAD, BILATERAL KNEE, SHOULDER, AND HIPS X RAY WAS ORDERED. FAMILY CAME AND MADE AWARE. PATIENT FOR NEUROLOGICAL CHECK.
--- NOTE | 2019-03-01 18:46 | NUR ---
Paged Dr. Wilson
--- NOTE | 2019-03-01 18:49 | NUR ---
Called [facility], spoke to [place], notified them that we are cancelling the transport for tonight, instead we are putting it on WILL CALL.
--- NOTE | 2019-03-01 19:15 | NUR ---
OPENING NOTES Receive report from morning shift nurse. Patient AOx1, family at bedside. Confusion is noted. Patient shakiness in upper and lower extremities noted. Patient has sitter at bedside. Patient has no signs of respiratory distress and discomfort noted. Status post fall, mild bleeding on the left side head is noted. Will put dressing on. Seizure pads in place. Call light with in reach. Bed locked and lowest position. Safety precautions in place. Will continue to monitor patient.
--- NOTE | 2019-03-01 19:20 | NUR ---
closing note, patient fell at 1825 patient was found on the floor raising his legs in the air, I was accompanied by other staff to assist the patient with getting up from the floor. The patient was able to state to me his name, , his age, and what his mom's name was. Patient was able to move all extremities and move his head side to side. Blood was noted on the floor and on my hand when holding the patient's head. Patient was lifted back onto the bed. Vitals were taken BP 120/86, HR 73, 93% O2, 97.4 temperature, respirations 20. I placed 4x4 gauzes where the site of bleeding came from. Bleeding was stopped after applying pressure. I grabbed a flashlight to try to look for a cut on his head, patient has a lot of hair and there was no more active bleeding come from the site. Redness was noted. Patient was able to keep following simple commands like raising his limbs, turning his body, telling me his name and and who he lives with. The mom and another family member came to the unit. I informed them of what happened. Dr Wilson was paged for orders for radiology tests and to hold discharge at this time. Ambulance was called to cancel pickup.
[2019-03-01 20:00] VITALS: BP_SYST 115
--- NOTE | 2019-03-01 21:09 | NUR ---
MED PASS Due medication given at this time. Patient tolerated well. Patient has no signs of respiratory distress and discomfort noted. Patient is cooperative with sitter at the bedside. Shakiness in upper and lower extremities is noted. Seizure pads in place. Safety precautions in place. bed alarm on. Will continue to monitor patient
--- NOTE | 2019-03-01 23:23 | NUR ---
RN ROUNDS Patient asleep at this time. No signs of respiratory distress and discomfort noted. Breathing even ad unlabored. Sitter at bedside. Safety precautions in place. Will continue to monitor patient.
[2019-03-02 01:51] VITALS: BP_SYST 115
--- NOTE | 2019-03-02 02:45 | NUR ---
RN ROUNDS Patient asleep. No signs of respiratory distress and discomfort noted. Breathing even ad unlabored. Sitter at bedside. Seizure pads in place. Safety precautions in place. Will continue to monitor patient.
--- NOTE | 2019-03-02 04:38 | NUR ---
RN ROUNDS Patient awake, lying in bed. With sitter at bedside. No signs of respiratory distress and discomfort noted. Breathing even ad unlabored. Seizure pads in place. Safety precautions in place. Will continue to monitor patient.
[2019-03-02] MEDS: LEVOTHYROXINE SODIUM 0.05 MG TABLET PO SCH (06:26)
--- NOTE | 2019-03-02 07:00 | NUR ---
CLOSING NOTES Patient awake. Patient AOx1, Confusion is noted. Patient has sitter at bedside. Patient has no signs of respiratory distress and discomfort noted. Seizure pads in place. Call light with in reach. Bed locked and lowest position. Safety precautions in place. All needs met throughout the shift. Will endorse to oncoming shift nurse.
--- NOTE | 2019-03-02 07:25 | NUR ---
Initial notes: Patient awake, alert and oriented x2. Stable. I.V access patent. Sitter at bedside. Call light within reach. Safety measures in placed. Report received at bedside.
[2019-03-02 08:18] VITALS: BP_SYST 99
[2019-03-02] MEDS: SERTRALINE HCL 50 MG TABLET PO SCH (09:01)
[2019-03-02] MEDS: HALOPERIDOL 1 MG TABLET (HALDOL) PO SCH (09:01)
--- NOTE | 2019-03-02 09:13 | NUR ---
rounds: Patient meds given crushed with apple sauce. patient compliant.
[2019-03-02 12:22] VITALS: BP_SYST 115
--- NOTE | 2019-03-02 14:20 | NUR ---
rounds: Patient resting on bed. No distress noted. Sitter at bedside.
--- NOTE | 2019-03-02 14:24 | NUR ---
Family Informed: Spoke to mother, Mary Palacio about the discharge order and ambulance will picker box operator the patient at 16:00. Mary will just wait in her house for the patient to come home.
[2019-03-02 14:35] VITALS: BP_SYST 115
--- NOTE | 2019-03-02 15:30 | NUR ---
DC PLANNING: SPOKE WITH JF (EPIC ANESTHESIA ANALYST @ [facility]) @ INFORM THAT PATIENT IS DISCHARGING TODAY. PER JF, THEY WILL HAVE PATIENT BE EVALUATED AT HOME WITHIN 48HOURS.
[2019-03-02 15:48] VITALS: BP_SYST 115
--- NOTE | 2019-03-02 16:11 | NUR ---
Discharge: Report given to ambulance crew. Patient going home. Transfer packet with Transfer Orders and Medication Reconciliation form given to EMT with report. Exitcare provided. IV catheter removed, intact and dressing applied, no active bleeding. All belongings sent with patient. Patient left floor via gurney escorted by EMT in no distress.
== END 2019-03-02 16:10 | disposition home health service (06) | DRG 57 ==
LOC: SED 18:25 → STU 02-23 03:55 → SMU 02-26 13:22
PROVIDERS: ADMIT Internal Medicine; ATTEND Internal Medicine
DX: G10 Huntington's disease (principal); E44.0 Moderate protein-calorie malnutrition; Z68.1 Body mass index [BMI] 19.9 or less, adult; E03.9 Hypothyroidism, unspecified; R13.10 Dysphagia, unspecified; R62.7 Adult failure to thrive
CPT/HCPCS: 36415; 70450-TC; 71045; 73030; 73521; 80053; 81003; 83605; 84443-TC; 85025; 87040-TC; 92610-GN; 93005; 96365; 97110-GP; 97116-GP; 97530-GP; 99285; G0378; J2060; J2543; J3480; J7030

== ENCOUNTER 2019-03-17 11:32 | Inpatient (IN) | payer OTHER ==
[~2019-03-17] VITALS: Ht 167.6 cm; Wt 45.4 kg
[2019-03-17 11:32] VITALS: BP_SYST 138
[~2019-03-17 11:32] MED LIST: BACL10TA PO; HAL1 PO; LEVO25TA7 PO; LORA10TA7 PO; SERT50TA12 PO
--- NOTE | 2019-03-17 11:52 | NUR ---
Placed in room 02. Placed on quality assurance monitor body, blood pressure machine and pulse oximeter. To gown for exam. Side rails up. Report given to CRISTEL Ring.
[2019-03-17] MEDS ORDERED: NACL 0.9% 1,000 ML IV ONE (12:00)
--- NOTE | 2019-03-17 12:00 | NUR ---
ER at bedside examining patient.
--- NOTE | 2019-03-17 12:00 | NUR ---
Patient presented C/O low blood pressure. Patient A&Ox3, afebrile, skin pink and warm, cap refill <3, non-ambulatory, emaciated appearance, HX of Ron Dz. Patient was brought in [facility], home health care nurse called 911 for low BP.
--- NOTE | 2019-03-17 12:02 | NUR ---
Phleb at bedside for blood draw
--- NOTE | 2019-03-17 12:03 | NUR ---
Mother at bedside
--- NOTE | 2019-03-17 12:30 | NUR ---
Attempted to obtain urine specimen wit I&O catheter, patient spasming during procedure, unsuccessful, Made Dr. Figueredo aware.
[2019-03-17 12:38] LABS: BASOPHILS % (AUTO) 0.2 % (0.0-2.0); HEMOGLOBIN 14.7 g/dL (14.0-18.0); LYMPHOCYTES # (AUTO) 0.8 K/uL (1.0-5.5); LYMPHOCYTES % (AUTO) 7.7 % (20.5-51.5); MEAN CORPUSCULAR HEMOGLOBIN 34 pg (27-31); MEAN CORPUSCULAR HGB CONC 33 % (32-36); MEAN CORPUSCULAR VOLUME 100 fL (79.0-98.0); MONOCYTES # (AUTO) 0.2 K/uL (0.0-1.0); MONOCYTES % (AUTO) 1.7 % (1.7-9.3); NEUTROPHILS # (AUTO) 9.4 K/uL (1.8-7.7); NEUTROPHILS % (AUTO) 90.4 % (40.0-70.0); PLATELET COUNT (AUTO) 144 K/uL (130-430); RED BLOOD CELL COUNT(AUTO) 4.39 MIL/uL (4.2-6.2); RED CELL DISTRIBUTION WIDTH 14.8 % (9.0-15.0); WHITE BLOOD COUNT (AUTO) 10.4 K/uL (4.8-10.8)
[2019-03-17 12:39] LABS: CALCIUM 7.2 mg/dL (8.4-11.0); CHLORIDE 102 mmol/L (98-107); CREATININE 0.65 mg/dL (0.55-1.30); GLUCOSE 85 mg/dL (70-99); POTASSIUM 4.9 mmol/L (3.5-5.1); SODIUM SERUM 138 mmol/L (136-145); UREA NITROGEN, BLOOD 58 mg/dL (8-21)
[2019-03-17 12:45] LABS: ALANINE AMINOTRANSFERASE 147 U/L (12-78); ALBUMIN 2.2 g/dL (3.4-4.8); ASPARTATE AMINOTRANSFERASE 166 U/L (10-37); TOTAL BILIRUBIN 1.9 mg/dL (0.0-1.0)
[2019-03-17 12:49] LABS: ANION GAP < 3 (5-15); GFR AFRICAN AMERICAN 162 mL/min (>90)
--- NOTE | 2019-03-17 14:10 | NUR ---
Nancy [facility] Death Surveys Coder, resagarested fax of facesheeet and clinicals and will call back regarding pt status. fax: [phone]
--- NOTE | 2019-03-17 15:29 | NUR ---
PER ER ADMITTING, [place] [facility] [place] SA[place] WAS OK TO ADMIT HERE. PAGING MANUFACTURING TECHNOLOGY PROFESSOR FOR ADMISSION.
[2019-03-17] MEDS ORDERED: D5/0.45 NS 1,000 ML IV ONE (16:15)
--- NOTE | 2019-03-17 16:17 | NUR ---
Patient will be admitted to care of DR FORD. Admitted to TELE unit. Will go to room 119B. Belongings list completed. Complete and up to date summary report printed. SBAR report to be given at bedside with opportunity for questions.
--- NOTE | 2019-03-17 16:17 | NUR ---
Transfer to tELE 119B via ACLS protocol. Licensed nurse present. IV present no signs or symptoms of infiltration.
[2019-03-17 16:20] LABS: BILIRUBIN,URINE NEGATIVE (NEGATIVE); BLOOD, URINE 3+ (NEGATIVE); CLARITY/URINE CLEAR (CLEAR); COLOR,URINE YELLOW (YELLOW); GLUCOSE,URINE NEGATIVE (NEGATIVE); KETONES,URINE NEGATIVE (NEGATIVE); LEUKOCYTE ESTERASE ,URINE NEGATIVE (NEGATIVE); NITRITE, URINE NEGATIVE (NEGATIVE); PROTEIN URINE NEGATIVE (NEGATIVE); UROBILINOGEN,URINE 0.2 (0.2-1.0)
[2019-03-17 16:33] LABS: BACTERIA,URINE FEW /HPF (None Seen); MUCUS,URINE None Seen /LPF (None Seen); WBC,URINE 0-3 /HPF (0-3)
[2019-03-17] MEDS ORDERED: LORazepam 2 MG/ML VIAL IVP PRN (17:30)
[2019-03-17] MEDS ORDERED: ACETAMINOPHEN 325 MG TABLET PO PRN (17:30)
[2019-03-17] MEDS ORDERED: ONDANSETRON HCL 4 MG/2 ML VIAL IVP PRN (17:30)
[2019-03-17] MEDS ORDERED: LORATADINE 10 MG TABLET PO SCH (17:30)
[2019-03-17] MEDS ORDERED: HYDROcodone/ACETAMIN 10-325 MG TAB PO PRN (17:30)
[2019-03-17] MEDS ORDERED: HYDROcodone/ACETAMIN 5-325 MG TAB (NORCO/ VICODIN) PO PRN (17:30)
[2019-03-17 17:45] VITALS: BP_SYST 98
--- NOTE | 2019-03-17 18:07 | NUR ---
CONSULTATION PAGED/CALLED Reason for Consultation: [] HYPOTENSION Person Who was Notified: [] MORGAN Consulting Physician: [] DR GERMAINE FORD Adjunct History Instructor Specialty: [] CARDIOLOGY Ordering Physician: [] DR Neel FORD
[2019-03-17 19:00] VITALS: BP_SYST 120
--- NOTE | 2019-03-17 19:00 | NUR ---
Note Pt resting in bed. Admission assessment was done from the medical chart. Pt had no family or caregiver at bedside all shift. No needs noted at this time. Tele unit intact and no needs noted at this time. Call light within reach. US dept called to pick pt up for US of abdomen shortly. Call light within reach. Pt was checked on q1' and PRN.
--- NOTE | 2019-03-17 19:15 | NUR ---
change of shift.pt.presents quiescent affect;clam,somnolent.pt.presents hx;caleb;s dx.pt.presents muscular weakness;motor function compromised.pt.presents o2 therapy via nasal cannulae.iv acces x2 current iv lock.call light/telephone w/in reach of the pt.
[2019-03-17 20:00] VITALS: BP_SYST 120
--- NOTE | 2019-03-17 20:00 | NUR ---
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 motor function compromised.emaciated presentation.pt.capable to wouth gesture words.pt. presents iv access x2.i am to initiate the iv fluids administration.pt.assessed for cleanliness.pt.repositioned.call light/telephone placed w/in reach of the pt.
--- NOTE | 2019-03-17 21:00 | NUR ---
2100pmedications administered.2/t pt's compromised swallow capacity;function i have crushed the po medications. administered w/apple juice.i have initiated the administration of the iv fluids;d5/45ns.
[2019-03-17] MEDS: BACLOFEN 10 MG TABLET PO PRN (21:24)
[2019-03-17] MEDS: HALOPERIDOL 1 MG TABLET (HALDOL) PO SCH (21:24)
--- NOTE | 2019-03-17 22:00 | NUR ---
pt.assessed.pt.presents quiescent affect;calm,somnolent.pt.assessed for cleanliness.pt.repositioned.iv access intact;patent; iv fluids infusing. general status stable.respiratory status stable;o2-sat%=94%.call light/telephone placed w/in reach of the pt.
--- NOTE | 2019-03-17 23:00 | NUR ---
CONSULTATION PAGED/CALLED Reason for Consultation: TRANSAMINITIS Person Who was Notified: LORENZO Consulting Physician: DR. STOCK; CNC TECHNICIAN - DR. SALAZAR Ordering Physician: NABEEL LORENZO
[2019-03-18] VITALS: BP_SYST 125
--- NOTE | 2019-03-18 | NUR ---
pt.assessed.v/s assessed;values w/in normal limits.i inquired if the pt.presents pain;pt.mouth gestured no pain;head gestured no pain. pt.assessed for cleanliness.pt.repositioned.iv access intact;patent.iv fluids infusing.call light/telephone placed w/in reach of the pt.
--- NOTE | 2019-03-18 02:00 | NUR ---
pt.assessed.pt.presents quiescent affect;calm,resting.it is noted that the h/r presets 44-48bpm.pt.presents asymptomatic status. pt.assessed for cleanliness.pt.repositioned.i have presented the pt.w/juice;administered the juice.iv access intact;patent.iv fluids infusing. general status stable.respiratory status stable;un;bored:02-sat%=96%.call light/telephone placed w/in reach of the pt.
--- NOTE | 2019-03-18 04:00 | NUR ---
pt.assessed.pt.presents quiescent affect;calm,somnolent.pt.assessed for cleanliness.pt.repositioned.iv access intact;patent;iv fluids infusing. general status stable.respiratory status stable;o2-sat%=96%.call light/telephone placed w/in reach of the pt.
--- NOTE | 2019-03-18 06:12 | NUR ---
pt.assessed.pt.presents quiescent affect;calm,somnolent.pt.assessed for cleanliness.pt.cleaned.pt.repositioned.iv access intact;patent iv fluids infusing.general status stable.respiratory status stable;unlabored:02-sat%=96%.call light/telephone placed w/in reach of the pt.
[2019-03-18] MEDS: BACLOFEN 10 MG TABLET PO PRN ×3 (06:40→20:48)
[2019-03-18] MEDS: LEVOTHYROXINE SODIUM 0.025 MG TABLET PO SCH (06:40)
[2019-03-18 07:10] LABS: CHLORIDE 102 mmol/L (98-107); CREATININE 0.51 mg/dL (0.55-1.30); GLUCOSE 133 mg/dL (70-99); POTASSIUM 4.2 mmol/L (3.5-5.1); SODIUM SERUM 136 mmol/L (136-145); UREA NITROGEN, BLOOD 51 mg/dL (8-21)
[2019-03-18 07:14] LABS: ANION GAP < 3 (5-15); GFR AFRICAN AMERICAN 215 mL/min (>90)
--- NOTE | 2019-03-18 08:00 | NUR ---
RN INITIAL NOTES RECEIVED PATIENT IN BED ALERT AWAKE , NOT IN ANY DISTRESS, ABLE TO ANSWER QUESTION BUT SLOW , SATRES MOST O FTHE TIME , PATIENT CANT TOLERATE REGULAR DIET , WILL INFORM MD TO DOWNGRADE DIET , PATIENT GIVEN FLUIDS SLOWLY RESP EVEN AND UNLABORED Addendum: 03/18/19 at 0959 by Theresa Grady RN DIET DIET CALLED AND CHANGED TO PUREED DIET , WILL MONITOR , MEDS GIVEN
[2019-03-18 08:08] LABS: HEMATOCRIT 40.7 % (36-54); HEMOGLOBIN 13.6 g/dL (14.0-18.0); LYMPHOCYTES # (AUTO) 0.9 K/uL (1.0-5.5); LYMPHOCYTES % (AUTO) 10.9 % (20.5-51.5); MEAN CORPUSCULAR HEMOGLOBIN 33 pg (27-31); MEAN CORPUSCULAR HGB CONC 33 % (32-36); MEAN CORPUSCULAR VOLUME 100 fL (79.0-98.0); MONOCYTES # (AUTO) 0.2 K/uL (0.0-1.0); MONOCYTES % (AUTO) 2.5 % (1.7-9.3); NEUTROPHILS # (AUTO) 7.5 K/uL (1.8-7.7); NEUTROPHILS % (AUTO) 86.6 % (40.0-70.0); PLATELET COUNT (AUTO) 105 K/uL (130-430); RED BLOOD CELL COUNT(AUTO) 4.08 MIL/uL (4.2-6.2); RED CELL DISTRIBUTION WIDTH 14.5 % (9.0-15.0); WHITE BLOOD COUNT (AUTO) 8.7 K/uL (4.8-10.8)
[2019-03-18 08:30] VITALS: BP_SYST 135
[2019-03-18] MEDS: HALOPERIDOL 1 MG TABLET (HALDOL) PO SCH ×2 (09:50→20:48)
[2019-03-18] MEDS: SERTRALINE HCL 50 MG TABLET PO SCH (09:50)
--- NOTE | 2019-03-18 09:57 | NUR ---
Nutrition Update Keith Scale 11 noted. Pt admitted for hypotension Diet: regular BMI: 16.1 kg/m2 RD to follow per nutrition care standards.
--- NOTE | 2019-03-18 10:00 | NUR ---
ROUNDS FAMILY AT BEDSIDE WANTED TO SPEAK WITH MEDICAL OFFICE TECHNOLOGY INSTRUCTOR /NOTIFIED MEDICAL OFFICE TECHNOLOGY INSTRUCTOR BY DEBUBBLIZER
[2019-03-18] MEDS: D5/0.45 NS 1,000 ML IV SCH ×2 (11:39→20:48)
[2019-03-18 12:00] VITALS: BP_SYST 104
--- NOTE | 2019-03-18 12:30 | NUR ---
LUNCH PATIENT ASSISTED WITH LUNCH , NO SIGN OF ASPIRATION
--- NOTE | 2019-03-18 14:00 | NUR ---
DR FORD CAME INFORMED ABOUT DVT PPX . WITH ORDER FOR [facility] NOTED
--- NOTE | 2019-03-18 16:05 | NUR ---
PAGED FOR STOOL SOFTENER PAGED DR FORD TO INFORM ABOUT STOOL SOFTENER Addendum: 03/18/19 at 1904 by Theresa Grady RN ENDORSEMENT WILL CONT CARE , RETURNED CALL AND ORDERED DSS FOR STOOL SOFTENER WILL START MEDS ONCE PHARMACY VERIFIED, PATIENT STAYED IN BED NO CHANGED OF CONDITION , WITH DC PLANNING TO SNF IN AM
[2019-03-18 16:11] VITALS: BP_SYST 113
--- NOTE | 2019-03-18 19:04 | NUR ---
END RN NOTES PATIENT ASSISTED WITH FEEDING NO SIGN OF ASPIRATION, SCD APPLIED
[2019-03-18] MEDS: DOCUSATE SODIUM 100 MG CAPSULE PO SCH (20:48)
[2019-03-18 21:00] VITALS: BP_SYST 137
--- NOTE | 2019-03-18 22:35 | NUR ---
PUREE PO DIET CONTINUED KEPT UP RIGHT POSITION no S/SX of aspiration comfort measures implemented position change tolerated .
--- NOTE | 2019-03-19 | NUR ---
BACLOFEN 10 MG PO administer for muscle spasm & helpful .
[2019-03-19 00:11] VITALS: BP_SYST 156
--- NOTE | 2019-03-19 03:54 | NUR ---
Hourly Rounding patient Resting HOB elevated on Room air 02 sat 96 % chest movement symmetrical assist as needed .
[2019-03-19] MEDS: LEVOTHYROXINE SODIUM 0.025 MG TABLET PO SCH (06:42)
[2019-03-19 08:00] VITALS: BP_SYST 106
--- NOTE | 2019-03-19 08:00 | NUR ---
RN INITIAL NOTES RECEIVED PATIENT IN BED ALERT AWAKE AND ABLE TO UNDERSTAND QUESTION, HOB ELEVATED, IVF INFUSING ORDERED, PATIENT REPOSITIONED AND TURNED TO SIDES
[2019-03-19] MEDS: SERTRALINE HCL 50 MG TABLET PO SCH (08:26)
[2019-03-19] MEDS: BACLOFEN 10 MG TABLET PO PRN (08:26)
[2019-03-19] MEDS: HALOPERIDOL 1 MG TABLET (HALDOL) PO SCH ×2 (08:26→21:30)
[2019-03-19] MEDS: DOCUSATE SODIUM 100 MG CAPSULE PO SCH ×2 (08:27→21:30)
[2019-03-19 09:34] LABS: BASOPHILS % (AUTO) 0.3 % (0.0-2.0); EOSINOPHILS % (AUTO) 0.1 % (0.0-4.0); HEMATOCRIT 40.8 % (36-54); HEMOGLOBIN 13.6 g/dL (14.0-18.0); LYMPHOCYTES # (AUTO) 0.3 K/uL (1.0-5.5); LYMPHOCYTES % (AUTO) 4.4 % (20.5-51.5); MEAN CORPUSCULAR HEMOGLOBIN 34 pg (27-31); MEAN CORPUSCULAR HGB CONC 33 % (32-36); MEAN CORPUSCULAR VOLUME 100 fL (79.0-98.0); MONOCYTES # (AUTO) 0.1 K/uL (0.0-1.0); MONOCYTES % (AUTO) 1.2 % (1.7-9.3); NEUTROPHILS # (AUTO) 5.9 K/uL (1.8-7.7); PLATELET COUNT (AUTO) 95 K/uL (130-430); RED BLOOD CELL COUNT(AUTO) 4.07 MIL/uL (4.2-6.2); RED CELL DISTRIBUTION WIDTH 15.1 % (9.0-15.0); WHITE BLOOD COUNT (AUTO) 6.3 K/uL (4.8-10.8)
[2019-03-19 09:48] LABS: INR 1.2 (0.80-1.20); PROTHROMBIN TIME 11.9 SECS (9.5-12.5)
--- NOTE | 2019-03-19 10:00 | NUR ---
ROUNDS PATIENT SEEN BY DR SALAZAR, WITH ORDER FOR CT OF THE ABDOMEN AND PELVIS W/W/O IV CONTRAST, LEFT MESSAGE WITH MOTHER FOR CONSENT
[2019-03-19 10:05] LABS: ACETAMINOPHEN 2 ug/mL (1-30); ALANINE AMINOTRANSFERASE 192 U/L (12-78); ASPARTATE AMINOTRANSFERASE 241 U/L (10-37); CALCIUM 7.2 mg/dL (8.4-11.0); CHLORIDE 100 mmol/L (98-107); CREATININE 0.51 mg/dL (0.55-1.30); GLUCOSE 168 mg/dL (70-99); POTASSIUM 3.5 mmol/L (3.5-5.1); SODIUM SERUM 136 mmol/L (136-145); TOTAL BILIRUBIN 1.5 mg/dL (0.0-1.0); UREA NITROGEN, BLOOD 33 mg/dL (8-21)
[2019-03-19 10:06] LABS: ANION GAP < 3 (5-15); GFR AFRICAN AMERICAN 215 mL/min (>90)
[2019-03-19 10:09] LABS: TOTAL IRON BIND. CAPACITY 91 ug/dL (250-450)
--- NOTE | 2019-03-19 10:30 | NUR ---
DR FORD . CAME DISCUSSED PATIENT CONDITION
[2019-03-19] MEDS ORDERED: DIATR MEGLU/DIATRIZ SOD 30 ML SOLUTION PO ONE (11:23)
[2019-03-19] MEDS: D5/0.45 NS 1,000 ML IV SCH ×3 (11:31→23:06)
--- NOTE | 2019-03-19 11:46 | NUR ---
CT OF THE ABDOMEN CONSENT OBTAINED FOR CT OF THE ABDOMEN W/ IV & W/O CONTRAST OBTAINED FROM THE MOTHER , WITNESSED BY THE OTHER LICENSE NURSE, RADIOLOGY AWARE , KEEP GIVING PO CONTRAST
[2019-03-19 12:57] VITALS: BP_SYST 101
[2019-03-19] MEDS ORDERED: IOHEXOL 100 ML IV ONE (13:20)
--- NOTE | 2019-03-19 13:30 | NUR ---
Discharge Planning: DCP faxed pt referral to at [facility] (f [phone] p [phone]) DCP to follow up
--- NOTE | 2019-03-19 15:25 | NUR ---
ROUNDS SLEEPING AT THIS TIME CONT WITH IVF ORDERED
[2019-03-19 16:37] VITALS: BP_SYST 103
--- NOTE | 2019-03-19 16:42 | NUR ---
CT OF PELVIS AND ABDOMEN PAGED GI PAGED FOR THE CT OF PELVIS/ABDOMEN RESULT PAGED GI DR TO REPORT AWAITING FOR THE DR TO CALL BACK
--- NOTE | 2019-03-19 17:36 | NUR ---
ROUNDS PATIENT AWAKE AT THIS TIME NO DISTRESS , OFFERED FLUIDS AND TOLERATED
--- NOTE | 2019-03-19 17:56 | NUR ---
DR MARTIN ANDRADE DR RETURNED AND ORDERED FLEET ENEMA AND MAGNESIUM CITRATE
[2019-03-19] MEDS ORDERED: MAGNESIUM CITRATE 300 ML ORAL SOLUTION PO SCH (18:00)
[2019-03-19] MEDS ORDERED: SODIUM PHOSPHATE,MONO-DIBASIC 133 ML ENEMA RC SCH (18:00)
--- NOTE | 2019-03-19 18:51 | NUR ---
ENDORSEMENT WILL ENDORSE TO NEXT SHIFT CONT CARE , PATIENT WILL BE MONITORED FOR THE FLEET ENEMA AND MAGNESIUM CITRATE EFFECT, PATIENT DONT WANT TO FINISH HIS MAGNESIUM CITRATE FOR NOW , WILL LET HIM DRINK MORE SLOWLY, SAFETY ENSURED , FOR DC PLANNING IN M
--- NOTE | 2019-03-19 19:30 | NUR ---
Opening note Received patient resting in bed awake, AOx1, no s/sx of distress, nonlabored breathing on 2L NC. IVF infusing via IV to RFA. Side rails up 3x, bed locked in lowest position, bed alarm on, and callw/in reach. Updated board and reviewed plan of care.
[2019-03-19 20:00] VITALS: BP_SYST 107
--- NOTE | 2019-03-19 21:38 | NUR ---
due medications Due medications, Haldol and Colace, were given. The meds were crushed and mixed in applesauce, elevated HOB. Patient swallowed and tolerated.
--- NOTE | 2019-03-19 23:07 | NUR ---
IVF IVF fluids empty; hung new bag of D5 1/2 NS and infusing as ordered at 100 ml/hr. Infusing well and patient tolerating.
[2019-03-20 00:12] VITALS: BP_SYST 148
--- NOTE | 2019-03-20 00:35 | NUR ---
Rounds Patient was repositioned and turned, no s/sx of distress. IVF infusing well. Safety precautions in place. Will continue to monitor.
--- NOTE | 2019-03-20 02:20 | NUR ---
Rounds Patient is resting w/ eyes closed, momentarily awakened to reposition and turn. Nonlabored breathing. IVF infusing well.
--- NOTE | 2019-03-20 04:24 | NUR ---
Rounds Patient is resting w/ eyes closed, momentarily awakened to reposition and turn. Symmetrical rise and fall of chest, nonlabored breathing.
[2019-03-20 06:45] LABS: HEMATOCRIT 39.4 % (36-54); HEMOGLOBIN 13.3 g/dL (14.0-18.0); MEAN CORPUSCULAR HEMOGLOBIN 33 pg (27-31); MEAN CORPUSCULAR HGB CONC 34 % (32-36); MEAN CORPUSCULAR VOLUME 99 fL (79.0-98.0); PLATELET COUNT (AUTO) 61 K/uL (130-430); RED CELL DISTRIBUTION WIDTH 14.8 % (9.0-15.0)
[2019-03-20] MEDS: LEVOTHYROXINE SODIUM 0.025 MG TABLET PO SCH (06:48)
--- NOTE | 2019-03-20 06:55 | NUR ---
Closing note Due medication given, crushed and mixed in applesauce. Patient resting in comfortable position, nonlabored breathing. IVF infusing well. Safety precautions in place and call light w/in reach. Needs met throughout shift, will endorse care to incoming nurse.
[2019-03-20 07:00] LABS: ALBUMIN 1.7 g/dL (3.4-4.8); CALCIUM 7.6 mg/dL (8.4-11.0); CREATININE 0.41 mg/dL (0.55-1.30); POTASSIUM 3.7 mmol/L (3.5-5.1); TOTAL BILIRUBIN 1.4 mg/dL (0.0-1.0)
[2019-03-20 07:23] LABS: TOTAL IRON BIND. CAPACITY 71 ug/dL (250-450)
[2019-03-20 07:25] LABS: WHITE BLOOD COUNT (AUTO) 2.5 K/uL (4.8-10.8)
[2019-03-20 07:55] VITALS: BP_SYST 99
--- NOTE | 2019-03-20 07:55 | NUR ---
INITIAL ROUNDS Received pt awake, non-verbal, withdraws and stiffens to touch. no s/s resp distress, no s/s pain or discomfort. IVF infusing well to RFA at ordered rate with no s/s infiltration to site. Plan of care reviewed with pt-pt just stared. Will reinforce all teachings. BLE with SCDs in place. Side rails up x3, bed alarm on and room across form nursing station for safety. Call light within reach.
[2019-03-20] MEDS: SERTRALINE HCL 50 MG TABLET PO SCH (11:28)
[2019-03-20] MEDS: DOCUSATE SODIUM 100 MG CAPSULE PO SCH ×2 (11:28→20:45)
[2019-03-20] MEDS: HALOPERIDOL 1 MG TABLET (HALDOL) PO SCH ×2 (11:33→20:45)
[2019-03-20] MEDS: D5/0.45 NS 1,000 ML IV SCH ×2 (11:36→23:21)
--- NOTE | 2019-03-20 11:40 | NUR ---
ROUNDS Pt resting quietly in bed with no s/s resp distress, no c/o pain or discomfort. Pt encouraged to eat >50 % of lunch-pt just nodded. Pt offered Ensure-pt shook his head no. Pt's mother at bedside. All precautions remain in place.
--- NOTE | 2019-03-20 12:26 | NUR ---
Discharge Planning: DCP followed up lm for at [facility] (f [phone] p [phone]) DCP to follow up
--- NOTE | 2019-03-20 13:21 | NUR ---
Nutrition Assessment (short note d/t lack of time) Admit Dx: Hypotension A- RD reviewed pt's current EMR including diet Hx, physician notes, nursing notes, pertinent labs/meds/procedures, care trends and care activity. Pt seen in bed, awake and answered some of RD's question during interview. Pt w/ poor appetite, eats small amount of pureed diet, Ensure can at bedside, untouched. Pt shook his head when RD asked if he drinks the Ensure and nodded when asked if he dislikes it. Pt appeared emaciated, noted severe muscle and fat wasting in bilateral calf and thigh and clavicle. NFPE in other parts of the body were not performed d/t physiological factors. Per RN, pt did not eat breakfast. Pt is malnourished and needs supplemental nutrition support w/ oral intake. Nutrition education is not appropriate. Current Diet Order: Pureed diet x 2 days Ht: 5'6 Wt: 100 BMI: 16.1 kg/m2 (Underweight) %IBW: 70% IBW: 142#/ 65 kg ESTIMATED NUTRITIONAL REQUIREMENTS CALORIES/DAY: 6226-9306 kcal/day (25-30 kcal/kg CBW for gradual wt gain promotion) PROTEIN/DAY: 45-68 gm/day (1-1.5 gm/kg CBW for wt gain promotion) FLUID/DAY: 1.1-1.4 L/day (1ml/calorie for maintenance) D: Malnutrition r/t pathophysiological factors AEB severe muscle and fat wasting in thigh, calf and clavicle, BMI 16.1 kg/m2 and 70% IBW. I: 1. Continue Pureed diet. Discontinue Ensure Enlive per patient's dislike to ONS. 2. Recommend: supplemental nutrition support (PPN) M: Monitor provision of nutrition support, appetite and PO intake w/ goal of pt meeting at least 75% of estimated nutritional needs, labs trending WNL, normal GI function, skin integrity/wt maintenance. E: RD to F/U within 2-3 days YOLANDA GRAHAM
--- NOTE | 2019-03-20 13:32 | NUR ---
Dietitian recommendation: 1. Continue Pureed diet. Discontinue Ensure Enlive per patient's dislike to ONS. 2. Recommend: supplemental nutrition support (PPN) Please see Nutritional Assessment for details. YOLANDA GRAHAM
[2019-03-20 14:03] LABS: BAND % (MANUAL) 44 % (0-6); LYMPHOCYTES % (MANUAL) 10 % (20-46)
[2019-03-20 14:04] LABS: ATYPICAL LYMPHOCYTES % 3 % (0-0); BASOPHILS % (MANUAL) 0 % (0-2); EOSINOPHILS % (MANUAL) 1 % (0-7); MONOCYTES % (MANUAL) 3 % (0-11)
[2019-03-20 14:13] VITALS: BP_SYST 112
--- NOTE | 2019-03-20 15:12 | NUR ---
Staff Scientist: met with pt to conduct a DCPA. SHOE REPAIR COBBLER met with pt who is nonverbal. Pts. mom, Mary Palacio was able to answer questions during this interview. Pt. was accompanied by her own sister, He Jacome. Mary stated pt. had been in the hospital 2 wks ago for the same issues, impacted , no bowel movement for 1 1/2 weeks and not eating. Pt has become weak, last month stopped talking and has high blood pressure. According to pts. mom, pt will not be returning to his home where he lives with her. Pt. needs a residential according to his mom and Dr. Nhung Tesfaye from [employer], , requested some paperwork from pts. mom. SHOE REPAIR COBBLER mad a copy of paperwork and called/left messg. for Mera, happy to fax to her. Pts. mom is good with the plan to have pt. go to a residential and requested the residential is close to her home in [place]. SHOE REPAIR COBBLER will remain available as needed.
[2019-03-20 16:53] VITALS: BP_SYST 143
--- NOTE | 2019-03-20 16:59 | NUR ---
ROUNDS Pt resting quietly in bed with no s/s resp distress, no c/o pain or discomfort. No changes, call light within reach.
--- NOTE | 2019-03-20 17:59 | NUR ---
CONSULT HEMATOLOGY PANCYTOPENIA DR MUNOZ [phone] S/W AVLE EXCHANGE
--- NOTE | 2019-03-20 18:35 | NUR ---
CLOSING NOTE Pt resting quietly in bed with no s/s resp distress, no c/o pain or discomfort. Pt refused dinner even with encouragement. Pt encouraged to eat >50% each meal. IVF infusing well to RFA at ordered rate with no s/s infiltration to site. All precautions remain in place, call light within reach.
--- NOTE | 2019-03-20 19:35 | NUR ---
ROUNDS PATIENT RESTING COMFORTABLY IN BED, VITALS STABLE, NO SIGNS OF ANY PAIN AND DISCOMFORT NOTED. ASSESSMENT DONE AND DOCUEMNTED. SEE FLOWSHEET. NEEDS ATTENDED TO SAFETY AND FALL MEASURES IN PLACED. BED IN LOW AND LOCKED POSITION. CALL LIGHT PLACED WITHIN REACH.
--- NOTE | 2019-03-20 21:13 | NUR ---
MEDICATION DUE MEDICATIONS GIVEN SCHEDULED, TOLERATED WELL. WILL CONTINUE TO MONITOR.
--- NOTE | 2019-03-21 00:12 | NUR ---
PATIENT RESTING: Patient resting quietly. No acute distress noted. Vital signs within normal range.
[2019-03-21 02:26] VITALS: BP_SYST 103
--- NOTE | 2019-03-21 04:15 | NUR ---
PATIENT RESTING: Patient resting quietly. No acute distress noted. Vital signs within normal range.
--- NOTE | 2019-03-21 06:11 | NUR ---
CLOSING NOTES PATIENT AWAKE, VITALS STABLE, NO PAIN AND DISCOMFORT AT THIS TIME. ALL NEEDS ATTENDED TO. CALL LIGHT PLACED WITHIN REACH.
[2019-03-21] MEDS: LEVOTHYROXINE SODIUM 0.025 MG TABLET PO SCH (06:16)
[2019-03-21 06:30] LABS: EOSINOPHILS % (AUTO) 0.1 % (0.0-4.0); HEMATOCRIT 34.7 % (36-54); HEMOGLOBIN 11.9 g/dL (14.0-18.0); LYMPHOCYTES # (AUTO) 0.2 K/uL (1.0-5.5); MEAN CORPUSCULAR HEMOGLOBIN 33 pg (27-31); MEAN CORPUSCULAR HGB CONC 34 % (32-36); MEAN CORPUSCULAR VOLUME 97 fL (79.0-98.0); MONOCYTES # (AUTO) 0.1 K/uL (0.0-1.0); MONOCYTES % (AUTO) 2.9 % (1.7-9.3); NEUTROPHILS # (AUTO) 2.2 K/uL (1.8-7.7); RED BLOOD CELL COUNT(AUTO) 3.58 MIL/uL (4.2-6.2); RED CELL DISTRIBUTION WIDTH 14.7 % (9.0-15.0); WHITE BLOOD COUNT (AUTO) 2.4 K/uL (4.8-10.8)
[2019-03-21 06:58] LABS: CALCIUM 7.8 mg/dL (8.4-11.0); CREATININE 0.21 mg/dL (0.55-1.30); POTASSIUM 3.9 mmol/L (3.5-5.1)
[2019-03-21 07:46] LABS: PLATELET COUNT (AUTO) 43 K/uL (130-430)
--- NOTE | 2019-03-21 08:00 | NUR ---
AM NOTES PT STABLE NOT IN ACUTE DISTRESS .A/OX1. HOB ELEVATED. IVF INFUSING WELL RT FOREARM #20 NO S/S OF INFILTRATIONS NOTED. VITALS STABLE .. NOT IN RES DISTRESS. SAFETY AND FALL PRECAUTIONS. MAINTAINED. KEPT COMFORTABLE WILL CONTINUE TO MONITOR
[2019-03-21 08:02] VITALS: BP_SYST 121
--- NOTE | 2019-03-21 09:30 | NUR ---
CALLED/ MERLY HEAD CALLED DR FORD FOR CLARIFICATION FFP ORDER HE GAVE EARLIER . DR FORD GAVE ORDER TO CANCEL FFP ORDER AND FOLLOW UP WITH DR MUNOZ
[2019-03-21] MEDS: SERTRALINE HCL 50 MG TABLET PO SCH (09:52)
[2019-03-21] MEDS: HALOPERIDOL 1 MG TABLET (HALDOL) PO SCH ×2 (09:52→22:42)
[2019-03-21] MEDS: DOCUSATE SODIUM 100 MG CAPSULE PO SCH ×2 (09:53→22:42)
[2019-03-21] MEDS: POLYETHYLENE GLYCOL 3350, 17 GM/ POWD.PACK PO SCH (09:53)
--- NOTE | 2019-03-21 10:00 | NUR ---
MD CALLED CALLED DR MUNOZ AND NOTIFIED ABOUT PLATELET COUNT 43 AND WBC 2.4 . NO ACTIVE BLEEDING NOTED. NO NEW ORDER RECEIVED .DR MUNOZ SAID HE WILL COME AND SEE PT
--- NOTE | 2019-03-21 10:00 | NUR ---
MEDS DUE MEDS GIVEN ORDERED WITH APPLE SAUCE. TOLERATED WELL. NO S/S OF DISTRESS NOTED
[2019-03-21 10:06] LABS: HEPATITIS A AB, IgM Negative (Negative); HEPATITIS B CORE AB, IgM Negative (Negative); HEPATITIS B SURFACE AG Negative (Negative)
[2019-03-21 12:06] LABS: AFP, TUMOR MARKER 2.2 ng/mL (0.0-8.3)
[2019-03-21 13:06] LABS: HEPATITIS A AB, IgM Negative (Negative); HEPATITIS B CORE AB, IgM Negative (Negative); HEPATITIS B SURFACE AG Negative (Negative)
[2019-03-21 13:34] VITALS: BP_SYST 126
--- NOTE | 2019-03-21 14:03 | NUR ---
RN ROUNDS PT STABLE NOT IN ACUTE DISTRESS. IVF INFUSING WELL. KEPT COMFORTABLE
--- NOTE | 2019-03-21 14:53 | NUR ---
Nutrition Note: Calorie Count RD was notified by pt's primary RN regarding plans for calorie count. RD implemented 72-hour calorie count order via [employer] that will start at dinner tonight. RD to continue to follow as per nutrition care standards.
[2019-03-21] MEDS: D5/0.45 NS 1,000 ML IV SCH (15:00)
--- NOTE | 2019-03-21 15:41 | NUR ---
DC PLANNING SPOKE WITH PARVIZ ROBLERORADHA ROSALES AT [phone] ADVISED OF PT NOTES DOCUMENTED AND DC PLAN TO SNF SHE SAID THEY PATIENT IS AT BASELINE FOR PT AND IS JAIL CARE WITH IS NOT COVERED BY CURRENT INSURANCE. CM DIRECTOR AND BAT BOY/GIRL SPOKE WITH PATIENT'S FAMILY AT BEDSIDE. MOTHER ADVISED SHE WOULD LIKE SNF PLACEMENT. CM INFORMED MOTHER LEANNE (INSURANCE AND PAYER) HAVE DENIED SHORT TERM SKILLED BASED ON PT NOTES THAT PATIENT IS AT HIS BASELINE AND PER PHYSICAL THERAPY RECOMMENDATIONS HOME HEALTH PT IS RECOMMENDED. CM ALSO RECOMMENDING HOME HEALTH RN ZEB FOR MEDICATION MANAGEMENT. EXPLAINED THIS INFORMATION TO FAMILY AT BEDSIDE. MOTHER ADVISED TURNED IN REQUESTED DOCUMENTS TO [facility] FOR MEDI-DENZEL APPLICATION PER [facility] MEDI-DENZEL COULD TAKE UP TO 30-45 DAYS TO BE ACTIVE. PATEINT WAS PREVIOUSLY WITH HOME HEALTH: [facility] PHONE [phone] FAX # [phone] PER PARVIZ AT [facility] STAY APPROVED FOR THE DAY FOR LOW PLT HOWEVER CM AT INSURANCE ANTICIPATES DC TOMORROW. AWAITING MD DC PLAN FOR ADDITIONAL ORDERS CM ANTICIPATES DC HOME WITH HOME HEALTH ONCE MEDICALLY CLEAR.
[2019-03-21] MEDS ORDERED: SODIUM PHOSPHATE,MONO-DIBASIC 133 ML ENEMA RC ONE (16:45)
[2019-03-21 17:18] VITALS: BP_SYST 109
--- NOTE | 2019-03-21 17:30 | NUR ---
FLEET ENEMA PT CONSTIPATED . FLEET ENEMA GIVEN ORDERED WITH GOOD RESULTS.1 LARGE BM NOTED. PT CLEANED AND REPOSITIONED. WILL CONITNUE TO MONITOR
--- NOTE | 2019-03-21 18:50 | NUR ---
CLOSING NOTES PT STABLE NOT IN ACUTE DISTRESS. IVF INFUSING WELL. KEPT COMFORTABLE.
[2019-03-21] MEDS: NORMAL SALINE 5 ML DISP.SYRIN IVF SCH (22:15)
--- NOTE | 2019-03-21 23:08 | NUR ---
MEDICATION GIVEN WITH DIFICULTY THE PATIE T REFUSING THE MEDICATION , CRUSHED AND GIVEN SLOWLY WITH HEAD OF THE BED ELEVATED FOR ASPITATION PRECAUTION
--- NOTE | 2019-03-21 23:32 | NUR ---
DR FORD PAGED THE PATIENT IV FLUIDS WAS DISCONTINUED AND THE PATIENT HAS DIFFICULTY TAKING FLUIDS.CALLED BACK AND GAVE ORDERED AND CARRIED OUT
--- NOTE | 2019-03-21 23:45 | NUR ---
DR STOCK GI CONSULT PAGED TO INFORM ABOUT THE GI CONSULT AND TALKED TO BETH. DR WILL SEE THE PATIENT IN AM. IV FLUIDS RESULED ORDERED,
[2019-03-22] MEDS: D5/0.45 NS 500 ML IV SCH ×2 (00:32→04:45)
[2019-03-22 01:55] VITALS: BP_SYST 116
[2019-03-22 04:00] VITALS: BP_SYST 122
[2019-03-22 05:07] LABS: ALPHA-1-ANTITRYPSIN, S 146 mg/dL (101-187)
[2019-03-22] MEDS: D5/0.45 NS 1,000 ML IV SCH ×3 (05:10→11:15)
[2019-03-22] MEDS: NORMAL SALINE 5 ML DISP.SYRIN IVF SCH ×3 (05:32→22:40)
[2019-03-22] MEDS: LEVOTHYROXINE SODIUM 0.025 MG TABLET PO SCH (06:34)
[2019-03-22 06:48] LABS: INR 1.1 (0.80-1.20)
--- NOTE | 2019-03-22 07:12 | NUR ---
swallow evaluation ordered as the patient has difficulty taking po intake,
[2019-03-22 07:41] LABS: ALANINE AMINOTRANSFERASE 171 U/L (12-78); ALBUMIN 1.6 g/dL (3.4-4.8); ASPARTATE AMINOTRANSFERASE 187 U/L (10-37); BILIRUBIN,DIRECT 0.2 mg/dL (0.0-0.3); CALCIUM 7.7 mg/dL (8.4-11.0); CHLORIDE 95 mmol/L (98-107); CREATININE 0.27 mg/dL (0.55-1.30); GLUCOSE 104 mg/dL (70-99); SODIUM SERUM 129 mmol/L (136-145); TOTAL BILIRUBIN 1.3 mg/dL (0.0-1.0); UREA NITROGEN, BLOOD 12 mg/dL (8-21)
[2019-03-22 07:42] LABS: ANION GAP < 3 (5-15); GFR AFRICAN AMERICAN 447 mL/min (>90)
[2019-03-22 07:48] LABS: EOSINOPHILS % (AUTO) 0.2 % (0.0-4.0); HEMOGLOBIN 11.5 g/dL (14.0-18.0); LYMPHOCYTES # (AUTO) 0.2 K/uL (1.0-5.5); LYMPHOCYTES % (AUTO) 6.6 % (20.5-51.5); MEAN CORPUSCULAR HEMOGLOBIN 34 pg (27-31); MEAN CORPUSCULAR HGB CONC 35 % (32-36); MEAN CORPUSCULAR VOLUME 97 fL (79.0-98.0); MONOCYTES # (AUTO) 0.1 K/uL (0.0-1.0); MONOCYTES % (AUTO) 2.3 % (1.7-9.3); NEUTROPHILS # (AUTO) 2.6 K/uL (1.8-7.7); NEUTROPHILS % (AUTO) 90.9 % (40.0-70.0); RED CELL DISTRIBUTION WIDTH 14.8 % (9.0-15.0); WHITE BLOOD COUNT (AUTO) 2.8 K/uL (4.8-10.8)
[2019-03-22 08:00] VITALS: BP_SYST 114
[2019-03-22] MEDS: HALOPERIDOL 1 MG TABLET (HALDOL) PO SCH ×2 (09:00→21:49)
--- NOTE | 2019-03-22 11:11 | NUR ---
Vlad Schmidt called: left message for Bisi [phone]
[2019-03-22] MEDS: DOCUSATE SODIUM 100 MG CAPSULE PO SCH ×2 (11:14→21:49)
[2019-03-22] MEDS: SERTRALINE HCL 50 MG TABLET PO SCH (11:14)
[2019-03-22] MEDS: POLYETHYLENE GLYCOL 3350, 17 GM/ POWD.PACK PO SCH (11:14)
[2019-03-22 12:02] LABS: PLATELET COUNT (AUTO) 34 K/uL (130-430)
--- NOTE | 2019-03-22 12:06 | NUR ---
Discharge Planning: DCP Faxed pt referral to at [facility] (f [phone] ) made aware of DCP, [facility] (f [phone] p [phone]) DCP to follow up Addendum: 03/22/19 at 1251 by Awilda SEGURA [facility] (f [phone] p [phone]) accepted to resume care
[2019-03-22 12:10] VITALS: BP_SYST 140
[2019-03-22 15:07] LABS: ATYPICAL pANCA <1:20 titer (Neg:<1:20); CYTOPLASMIC (C-ANCA) <1:20 titer (Neg:<1:20); CYTOPLASMIC (P-ANCA) <1:20 titer (Neg:<1:20)
[2019-03-22 15:47] LABS: FERRITIN 3700 ng/mL (30-400)
[2019-03-22 15:47] LABS: FERRITIN 3238 ng/mL (30-400)
[2019-03-22 16:12] VITALS: BP_SYST 116
[2019-03-22 17:07] LABS: ANTI NUCLEAR AB WITH REFLEX Negative (Negative)
[2019-03-22 17:07] LABS: ANTI NUCLEAR AB WITH REFLEX Negative (Negative)
--- NOTE | 2019-03-22 18:20 | NUR ---
S.T. SWALLOW EVAL SWALLOW EVAL COMPLETED. PT PRESENTS W/ MOD OROPHARYNGEAL DYSPHAGIA W/ ML ANTERIOR SPILLAGE, ML ORAL RESIDUE, IMPAIRED BOLUS MANIPULATION,AND DELAYED SWALLOW, NO S/S OF ASPIRATION BUT RISK PRESENT. REC: CONTINUE CURRENT PUREE DIET. VFSS TOMORROW. NURSE FLAVIA NOTIFIED. G8996 CK G8997 CK G8998 CK NOMS LEVEL 4
--- NOTE | 2019-03-22 20:16 | NUR ---
LAB CALLED FOR THE SECOND UNIT OF PLATELET AND THEY WILL CASL WHEN THE SECOND UNIT IS READY.
--- NOTE | 2019-03-22 22:41 | NUR ---
ivf on flow and awaiting for the lab to ricci about the second
[2019-03-23] VITALS (18 sets, daily range): BP systolic 80–126
[2019-03-23] MEDS: NORMAL SALINE 5 ML DISP.SYRIN IVF SCH ×3 (05:31→22:00)
[2019-03-23 06:28] LABS: ALBUMIN 1.4 g/dL (3.4-4.8); CALCIUM 7.3 mg/dL (8.4-11.0); CREATININE 0.26 mg/dL (0.55-1.30); TOTAL BILIRUBIN 1.1 mg/dL (0.0-1.0)
[2019-03-23 06:52] LABS: POTASSIUM 2.9 mmol/L (3.5-5.1)
--- NOTE | 2019-03-23 06:57 | NUR ---
lab called for critical result k level 2.9.
[2019-03-23] MEDS: LEVOTHYROXINE SODIUM 0.025 MG TABLET PO SCH (07:09)
--- NOTE | 2019-03-23 07:17 | NUR ---
gi consult in and seen patient ,no schedule for the gtube insertion till the platelet is in acceptable rsange. medication due given crushed and given .tolerated with difficulty.head of bedelevated 35 degrees,
[2019-03-23 07:39] LABS: EOSINOPHILS % (AUTO) 0.1 % (0.0-4.0); LYMPHOCYTES # (AUTO) 0.1 K/uL (1.0-5.5); MEAN CORPUSCULAR HGB CONC 35 % (32-36)
--- NOTE | 2019-03-23 07:47 | NUR ---
report given to the day shift rn that the k level is 2.9 and the second unit of platelet called availabe at 0600 hours and needs to transfused .no schedule to the gtube placement untill the platelet is in acceptable range
--- NOTE | 2019-03-23 07:55 | NUR ---
2nd unit platelet pheresis Information on unit of blood checked against patient wristband at bedside by two nurses. All information matches. Patient or responsible republican informed of potential complications associated with blood transfusion. Informed of possible transfusion reaction symptoms. Aware of need to notify nurse at once of itching, shortness of breath, flushing, feeling of impending doom, or other symptoms not previously present. Vital signs taken within 5 minutes prior to initiation of transfusion. RN will remain with patient for first 15 minutes of transfusion at which time vital signs will be re-assessed.
[2019-03-23] MEDS: SERTRALINE HCL 50 MG TABLET PO SCH (08:21)
[2019-03-23] MEDS: POLYETHYLENE GLYCOL 3350, 17 GM/ POWD.PACK PO SCH (08:21)
[2019-03-23] MEDS: DOCUSATE SODIUM 100 MG CAPSULE PO SCH ×2 (08:23→21:00)
[2019-03-23 08:46] LABS: HEMATOCRIT 31.6 % (36-54); MEAN CORPUSCULAR HEMOGLOBIN 34 pg (27-31); MEAN CORPUSCULAR VOLUME 97 fL (79.0-98.0); RED BLOOD CELL COUNT(AUTO) 3.27 MIL/uL (4.2-6.2)
[2019-03-23 08:47] LABS: BASOPHILS % (AUTO) 0.2 % (0.0-2.0); LYMPHOCYTES % (AUTO) 4.5 % (20.5-51.5); MONOCYTES % (AUTO) 1.4 % (1.7-9.3); NEUTROPHILS # (AUTO) 1.5 K/uL (1.8-7.7); PLATELET COUNT (AUTO) 69 K/uL (130-430); RED CELL DISTRIBUTION WIDTH 14.8 % (9.0-15.0)
[2019-03-23 08:48] LABS: WHITE BLOOD COUNT (AUTO) 1.6 K/uL (4.8-10.8)
[2019-03-23] MEDS: HALOPERIDOL 1 MG TABLET (HALDOL) PO SCH ×2 (09:00→21:00)
[2019-03-23] MEDS ORDERED: POTASSIUM CHLORIDE 40 MEQ in NS 250 ML IV ONE (09:15)
--- NOTE | 2019-03-23 09:40 | NUR ---
Platelet pheresis completed vitals sign stable , no sign of fluid overload nor transfusion reaction.
--- NOTE | 2019-03-23 11:03 | NUR ---
Discharge Planning: Pt has order for higher level of care transfer to [facility]. KITCHEN HELPER placed call to at [facility] (f [phone] p [phone]) to alert her of the order. asked for order and pt's information to be sent to her to be reviewed by CM and infertility medical assistant. indicated that pt should have been discharged home yesterday. KITCHEN HELPER faxed clinical information and transfer order. KITCHEN HELPER will follow up with to check status of transfer.
[2019-03-23 11:04] LABS: NEUTROPHILS % (AUTO) 93.8 % (40.0-70.0)
[2019-03-23] MEDS: D5/0.45 NS 1,000 ML IV SCH ×2 (12:00→14:17)
[2019-03-23 12:06] LABS: ANTI-SMOOTH MUSCLE AB 9 Units (0-19)
--- NOTE | 2019-03-23 13:03 | NUR ---
DC PLANNING: CALLED SPOKE WITH PARVIZ FROM [facility] [phone] ADVISED PATIENT REFERRAL WAS FAXED AND ACCEPTED AT [facility] AWAITING TELE BED. ACCEPTING MD: DR VALENTE LONG. PER [facility] CM [facility]Z [facility] AUTH IS [id number] USE [facility] BUT IS ADVANCED TRANSPORT REQUIRED SECOND CHOICE IS [facility]. NOTIFIED DOMONIQUE DIRECTOR TO INFORM PRIMARY RN. CALLED READIOLOGY TO HAVE CD MADE. Addendum: 03/23/19 at 1321 by Ewa Avery RN cALLED FAMILY TO NOTIFY OF TRANSFER PLAN. MOTHER BOONE CEJA PHONE NUMBER [phone] STATES SHE IS ON HER WAY TO THE HOSPITAL ADVISED MTYSELF OR NURSING WOULD PROVIDE DETAILS OF TRANSFER THE BECOME AVAILABLE.
--- NOTE | 2019-03-23 13:15 | NUR ---
TO Radiology department for swallow video fluoroscopy , open eyes to verbal stimuli , vitals sign stable.
[2019-03-23] MEDS ORDERED: BARIUM SULFATE 135 ML SUSP.RECON (E-Z-HD) PO ONE (13:21)
--- NOTE | 2019-03-23 14:29 | NUR ---
Oxygen saturation drop to 80 % kept on non rebreathing mask 100%, increase to 96%., will monitor. Addendum: 03/23/19 at 1435 by Jessica Uribe RN suction oral secretion white thing in the mouth ,N/S bolus started due to low blood pressure.
[2019-03-23] MEDS ORDERED: NACL 0.9% 1,000 ML IV ONE (14:30)
--- NOTE | 2019-03-23 14:30 | NUR ---
Opening Note Patient transferred to ICU bed 2 from telemetry unit with report of low O2 saturation and hypotension. Patient received and connected to cardiac monitor technician and is awake. Patient on 100% nonrebreather mask with saturation of 95%-100%. Patient is not in distress at this time. Patient BP is 96/58. Patient receiving 1L NS. Patient does not complain of pain. Safety precautions enforced.
--- NOTE | 2019-03-23 14:50 | NUR ---
Transfer to ICU due to hypotension /low oxygen saturation , endorsed patient to RN Kitty.
--- NOTE | 2019-03-23 14:50 | NUR ---
S.T. VIDEOFLUOROSCOPIC SWALLOW STUDY (VFSS) VFSS COMPLETED. PT PRESENTS W/ SEV ORAL AND MOD PHARYNGEAL DYSPHAGIA CHARACTERIZED BY SEV DELAYED INITIATION FOR BOLUS MANIPULATION, SEV DELAYED BOLUS TRANSFER, DELAYED SWALLOW, AND VALLECULAR RETENTION (DIFFICULT TO CLEAR). NO ASPIRATION NOTED DURING TODAY'S VFSS, BUT PT IS AT HIGH RISK D/T SEV DELAYS AND PHARYNGEAL RESIDUE. PT ALSO AT VERY HIGH RISK FOR MALNUTRITION AND DEHYDRATION D/T DECREASED INTEREST FOR P.O. AND CURRENT MALNUTRITION. REC: NPO. ALTERNATIVE METHOD FOR FEEDING. PT'S MOM IS AGREEABLE W/ RESULTS AND REC. NURSE TEREZA NOTIFIED. G8996 CM G8997 CM G8998 CM NOMS LEVEL 2
[2019-03-23] MEDS ORDERED: ETOMIDATE 20 MG/ 10 ML VIAL (AMIDATE) IVP ONE (14:57)
[2019-03-23] MEDS ORDERED: SUCCINYLCHOLINE CHLORIDE 20 MG/ML(QUELICIN) IVP ONE (14:57)
[2019-03-23] MEDS ORDERED: HYDROCORTISONE SOD SUCC 100 MG/2 ML VIAL IVP ONE ×2 (16:00→23:00)
--- NOTE | 2019-03-23 16:24 | NUR ---
DC PLANNING SPOKE JOHN FERRARI WITH [facility] AT [phone] ADVISED OF PT CHANGE IN STATUS AND TO CONTACT ICU IF BED AVAILABLE HOWEVER CM WOULD LIKE A NEW ORDER FROM PRIMARY ATTENDING REGARDING STABILITY TO TRANSFER TO CONTRACTED HIGHER LEVEL OF CARE FACILITY.
[2019-03-23] MEDS ORDERED: NOREPINEPHRINE 4 MG/4 ML VIAL IV ONE ×2 (16:34→23:07)
--- NOTE | 2019-03-23 16:37 | NUR ---
Paged Dr. Soto for orders. Spoke with exchange.
[2019-03-23] MEDS: NACL 0.9% 1,000 ML IV SCH (17:01)
--- NOTE | 2019-03-23 17:05 | NUR ---
Nutrition F/U Admit Dx: Hypotension PMH: Fleming's disease, hypothyroidism per physician notes A- RD reviewed pt's current EMR including diet Hx, physician notes, nursing notes, pertinent labs/meds/procedures, care trends, and care activity. Subjective Info: Pt was undergoing care by RN and RT at time of RD visit earlier today. Per EMR, PO intake average of 32% x6 meals. Calorie count was initiated 03/21/19-03/24/19. However, only one meal report was completed and returned to RD. Based on Patron Intake Analysis Report from [facility], pt ate 510 kcal and 18 gm protein at dinner on 03/21/19. No other meal reports were available to further assess pt's caloric intakes over the past two days. Plans for D/C to higher level of care for therapeutic phlebotomy for iron-overload per physician orders. Pt continues w/ malnutrition risk and is not meeting estimated nutritional needs. Current Diet Order: Pureed diet x5 days Ht: 5'6 Wt: 100 BMI: 16.1 kg/m2 (Underweight) %IBW: 70% IBW: 142#/ 65 kg ESTIMATED NUTRITIONAL REQUIREMENTS CALORIES/DAY: 2489-5385 kcal/day (25-30 kcal/kg CBW for gradual wt gain promotion) PROTEIN/DAY: 45-68 gm/day (1-1.5 gm/kg CBW for wt gain promotion) FLUID/DAY: 1.1-1.4 L/day (1ml/calorie for maintenance) D: Malnutrition r/t pathophysiological factors AEB severe muscle and fat wasting in thigh, calf and clavicle, BMI 16.1 kg/m2 and 70% IBW. (*ongoing) I: 1. Continue Pureed diet. Discontinue Ensure Enlive per patient's dislike to ONS. 2. Consider supplemental nutrition support (PPN) M: Monitor provision of nutrition support, appetite and PO intake w/ goal of pt meeting at least 75% of estimated nutritional needs, labs trending WNL, normal GI function, skin integrity/wt maintenance. E: RD to F/U within 2-3 days
--- NOTE | 2019-03-23 17:10 | NUR ---
Dietitian Recommendations 1. Continue Pureed diet. Discontinue Ensure Enlive per patient's dislike to ONS. 2. Consider supplemental nutrition support (PPN) LP, RD Please refer to Nutrition F/U for details.
--- NOTE | 2019-03-23 17:29 | NUR ---
CONSULTATION PAGED/CALLED Reason for Consultation: [] LOW O2 SAT Person Who was Notified: [] POOJA Consulting Physician: [] DR MAY, DR PHAM BRAZING MACHINE OPERATOR HELPER Ferryboat Operator Helper Specialty: [] PULMO Ordering Physician: [] Neel HONG
[2019-03-23] MEDS: PIPERACILLIN/TAZO 3.375/DEX-IS 50 ML IV SCH (18:23)
--- NOTE | 2019-03-23 19:44 | NUR ---
Closing Note Patient endorsed to maintenance supervisor 2nd shift RN using SBAR format. Patient on levophed at this time, resting in bed.
--- NOTE | 2019-03-23 20:00 | NUR ---
OPENS EYES SPONTANEOUSLY. DOES NOT FOLLOW COMMANDS. ON BIPAP 12/5, BUR 16, FIO2 75%. BREATH SOUNDS ESSENTIALLY CLEAR. POX 99%. BOWEL SOUNDS (+). PULSES WEAK. ON LEVOPHED DRIP AT 16 MCG/MIN, INCREASED TO 18 MCG/MIN. , THEN TO 20 MCG/MIN EARLIER. INCONTINENT OF URINE AND STOOL. 1 MOD SOFT BROWN STOOL DEFECATED. CLEANED. ROSA ISELA-CARE GIVEN. CHG BATH DONE. SKIN CARE, BACK CARE RENDERED. PARTIAL LINEN CHANGE DONE. SR. BP LABILE, UP AND DOWN.
[2019-03-23] MEDS: NOREPINEPHRINE BITARTRATE 4 MG in NS 246 ML IV PRN ×2 (20:14→23:44)
--- NOTE | 2019-03-23 20:30 | NUR ---
BP 135/ 45, LEVOPHED TITRATED DOWN TO 18 MCG/MIN.
--- NOTE | 2019-03-23 20:50 | NUR ---
DR Junior FORD CALLED, UPDATED ON STATUS. NOTIFIED OF POSSIBLE RHYTHM CHANGES. ORDERED EKG AND SANDERS CATHETER.
--- NOTE | 2019-03-23 21:30 | NUR ---
EKG DONE. ATTEMPTED TO INSERT SANDERS CATH X2 UNABLE TO INSERT.
--- NOTE | 2019-03-23 22:00 | NUR ---
BP DOWN, SOME TIMES UNABLE TO GET, LEVOPHED TITRATED UP AT 20 MCG/MIN.
[2019-03-23] MEDS: HYDROCORTISONE SOD SUCC 100 MG/2 ML VIAL IVP SCH (22:09)
--- NOTE | 2019-03-23 22:20 | NUR ---
CODE BLUE CALLED. SEE CODE BLUE SWEET.
--- NOTE | 2019-03-23 22:52 | NUR ---
DIFFICULT INTUBATION. CODE BLUE ON-GOING. DR ARANA ORDERED TO START ON DOPAMINE, MAY TITRATE UP TO 30 MCG/KG/MIN. ORDERED TO INCREASE LEVOPHED TO 30 MCG/MIN, MAY INCREASE TO 40 MCG/MIN.
[2019-03-23] MEDS ORDERED: HYDROCORTISONE SOD SUCC 100 MG/2 ML VIAL ONE (23:06)
--- NOTE | 2019-03-23 23:27 | NUR ---
FINALLY INTUBATED BY DR ARANA AFTER SEVERAL ATTEMPTS.
--- NOTE | 2019-03-23 23:30 | NUR ---
CODE BLUE ENDED. DR ARANA CALLED FAMILY, TALKED TO BOONE CEJA, MOTHER. MOTHER SAID THEY WILL BE COMING.
[2019-03-24] VITALS (28 sets, daily range): BP systolic 44–110
[2019-03-24] MEDS ORDERED: VANCOMYCIN HCL 1 GM/NS PREMIX 250 ML IV ONE
--- NOTE | 2019-03-24 | NUR ---
OPENS EYES SPON. BP STILL LABILE. DESATURATES AT TIMES. SUCTIONED.
[2019-03-24] MEDS: PIPERACILLIN/TAZO 3.375/DEX-IS 50 ML IV SCH ×4 (00:07→17:29)
--- NOTE | 2019-03-24 00:30 | NUR ---
FAMILY ARRIVED, VISITING AT BEDSIDE. UP DATED ON STATUS. SOME TEACHING DONE ON MEDICATIONS.
[2019-03-24] MEDS ORDERED: VANCOMYCIN HCL 1000 MG/VIAL IV ONE (00:44)
[2019-03-24] MEDS ORDERED: NOREPINEPHRINE 4 MG/4 ML VIAL IV ONE ×4 (01:11→07:43)
--- NOTE | 2019-03-24 01:40 | NUR ---
DR PHAM CALLED, NOTIFIED OF ABG RESULTS, AND OF STATUS. ORDERED TO CHANGE TO AC 18, AND FLUID CHALLENGE OF 500 NS, IMPLEMENTED.
--- NOTE | 2019-03-24 02:08 | NUR ---
FAMILY DECIDED TO MAKE PT DNR, PAPER SIGNED BY GABRIELLE LOZAFINANCIAL WRITER, AND GURVINDER POLO MD.
[2019-03-24] MEDS ORDERED: NS 500 ML IV ONE (02:30)
[2019-03-24] MEDS: NOREPINEPHRINE BITARTRATE 4 MG in NS 246 ML IV PRN ×3 (03:25→12:38)
[2019-03-24] MEDS: NACL 0.9% 1,000 ML IV SCH (03:28)
--- NOTE | 2019-03-24 03:40 | NUR ---
FAMILY LEFT FOR HOME.
--- NOTE | 2019-03-24 04:00 | NUR ---
OPENS EYES SPON, DOES NOT FOLLOW COMMANDS. SUCTIONED. REPOSITIONED. ORAL CARE DONE. BP LABILE. LEVO ALREADY AT 40 MCG/MIN, DOPAMINE AT 30 MCG/KG/MIN. AM CARE DONE.
[2019-03-24] MEDS ORDERED: DOPamine PREMIX 250 ML IV ONE (04:15)
[2019-03-24] MEDS: NORMAL SALINE 5 ML DISP.SYRIN IVF SCH ×3 (06:00→21:33)
--- NOTE | 2019-03-24 06:00 | NUR ---
NO UO AT THIS TIME. BP STILL LABILE. REMAINS IN GUARDED CONDITION.
[2019-03-24] MEDS: HYDROCORTISONE SOD SUCC 100 MG/2 ML VIAL IVP SCH ×3 (06:04→21:34)
[2019-03-24 06:28] LABS: MEAN CORPUSCULAR HGB CONC 35 % (32-36)
[2019-03-24 06:48] LABS: ALBUMIN 0.9 g/dL (3.4-4.8); CREATININE 0.53 mg/dL (0.55-1.30); TOTAL BILIRUBIN 1.2 mg/dL (0.0-1.0)
[2019-03-24] MEDS: LEVOTHYROXINE SODIUM 0.025 MG TABLET PO SCH (07:00)
--- NOTE | 2019-03-24 07:00 | NUR ---
LAB REPORTED POTASSIUM OF 2.7, AND GLUCOSE OF 25. 1 AMP D50W GIVEN PER HYPOGLYCEMIC PROTOCOL. RELAYED TO AVINASH MENDOZA.
[2019-03-24] MEDS ORDERED: DEXTROSE 50% JECT 50 ML DISP.SYRIN ONE (07:17)
--- NOTE | 2019-03-24 07:20 | NUR ---
OPENING NOTE: RECEIVED PATIENT FROM [facility]. PATIENT LAYING IN BED, OPENS EYES SPONTANEOUSLY AND ABLE TO MOVE HIS HEAD AND HANDS. PATIENT INTUBATED WITH VENT SETTINGS CHECKED AT BEDSIDE PER MD ORDERS. IV SITES INTACT AND PATENT, NO REDNESS,SWELLING TO SITE. BED AT LOWEST POSITION, CONTINUE TO MONITOR.
[2019-03-24 07:32] LABS: POTASSIUM 2.7 mmol/L (3.5-5.1)
[2019-03-24 07:33] LABS: CALCIUM 6.3 mg/dL (8.4-11.0)
[2019-03-24 08:15] LABS: HEMATOCRIT 28.6 % (36-54); MEAN CORPUSCULAR HEMOGLOBIN 34 pg (27-31); MEAN CORPUSCULAR VOLUME 97 fL (79.0-98.0); RED BLOOD CELL COUNT(AUTO) 2.93 MIL/uL (4.2-6.2); RED CELL DISTRIBUTION WIDTH 14.8 % (9.0-15.0); WHITE BLOOD COUNT (AUTO) 0.3 K/uL (4.8-10.8)
[2019-03-24 08:16] LABS: PLATELET COUNT (AUTO) 27 K/uL (130-430)
[2019-03-24] MEDS: POLYETHYLENE GLYCOL 3350, 17 GM/ POWD.PACK PO SCH (08:16)
[2019-03-24] MEDS: DOCUSATE SODIUM 100 MG CAPSULE PO SCH ×2 (08:16→20:21)
--- NOTE | 2019-03-24 08:20 | NUR ---
PAGED DR. FORD: PAGED Kate LORENZO IN REGARDS TO CRITICAL LABS. AWAITING FOR CALL BACK.
--- NOTE | 2019-03-24 08:30 | NUR ---
Discharge Planning: GIORGI received call from Lorne at the [facility] ([phone]); GIORGI provided update to Lorne; Lorne will place pt's transfer on hold at this time.
[2019-03-24] MEDS: HALOPERIDOL 1 MG TABLET (HALDOL) PO SCH ×2 (09:00→20:21)
[2019-03-24] MEDS: SERTRALINE HCL 50 MG TABLET PO SCH (09:00)
--- NOTE | 2019-03-24 09:00 | NUR ---
PAGED DR. MUNOZ: AWAITING CALL BACK.
--- NOTE | 2019-03-24 09:10 | NUR ---
PAGED DR. FORD X2: PAGED DR. FORD X2, AWAITING FOR CALL BACK.
[2019-03-24] MEDS ORDERED: POTASSIUM CHLORIDE 40 MEQ, LIDOCAINE JECT 2% PF 100 MG 50 MG in NS 250 ML IV ONE (10:00)
--- NOTE | 2019-03-24 10:23 | NUR ---
1010 CHANGED VENT SETTINGS TO AC24 PER MD MAY.
[2019-03-24 10:28] LABS: ERYTHROCYTE SEDIMENTATION RATE 8 MM/HR (0-15)
[2019-03-24] MEDS: PHENYLEPHRINE HCL 30 MG in NS 247 ML IV PRN ×4 (10:52→22:19)
[2019-03-24] MEDS: D5NS 1,000 ML IV SCH ×2 (12:35→20:29)
[2019-03-24] MEDS: NOREPINEPHRINE BITARTRATE 8 MG in D5W 242 ML IV PRN ×5 (12:55→20:13)
--- NOTE | 2019-03-24 13:58 | NUR ---
Medicare Specialist: met with family to offer supportive services. MEMORIAL DESIGNER met with pts. mom Mary Palacio, pts. uncle, Eliud and pts. niece. They were bedside with distressed looks on their faces. They said pt. does not look comfortable. Mom stated pt is not doing well. She said if pt. codes, they hospital staff will just provide medication. She added they are waiting for a lunch cook to come visit them in the hospital. Uncle Eliud stated, "you know he is not comfortable?" Rn had stated pt. is max'd out of the meds. MEMORIAL DESIGNER asked if they would like another blanket and got that for them. Family knows where the cafeteria is and MEMORIAL DESIGNER told them where the quiet room is. MEMORIAL DESIGNER asked Rn to let her know if anything changes so she could support family. During this interaction, pt. was awake and looking around. Family stated he does not know what is going on and is not aware of how he is doing. MEMORIAL DESIGNER will remain available as needed. An hour later, MEMORIAL DESIGNER had another pt. to see in ICU.and made a point to check in on pt. This pts. family was not present in the room and pt. was still, calm, resting. MEMORIAL DESIGNER will check in on pt and family later in the day.
[2019-03-24] MEDS: DOPamine PREMIX 250 ML IV PRN (14:31)
[2019-03-24 14:43] LABS: BASOPHILS % (AUTO) 0.2 % (0.0-2.0); EOSINOPHILS % (AUTO) 1.3 % (0.0-4.0); LYMPHOCYTES % (AUTO) 8.5 % (20.5-51.5); MONOCYTES % (AUTO) 1.3 % (1.7-9.3); NEUTROPHILS % (AUTO) 88.7 % (40.0-70.0)
[2019-03-24 14:44] LABS: NEUTROPHILS # (AUTO) 0.2 K/uL (1.8-7.7)
--- NOTE | 2019-03-24 14:46 | NUR ---
1400 CHANGED VENT SETTINGS TO AC30 PER MD MAY.
[2019-03-24] MEDS ORDERED: POTASSIUM CHLORIDE 40 MEQ in NS 250 ML IV ONE (16:30)
--- NOTE | 2019-03-24 16:40 | NUR ---
REGARDING CONSULT FOR UROLOGIST: CHARGE NURSE MADELINE CALLED DR. SIRENA DUGAN'S OFFICE TWICE IN REGARDS TO CONSULTATION FOR PATIENT. PER STAFF IN DR. DUGAN'S OFFICE "WE DONT ACCEPT THAT INSURANCE ([facility] [employer]). CALLING DR. FORD BACK IN REGARDS TO THAT MD NOT ACCEPTING PATIENT'S INSURANCE, AWAITING CALL BACK.
[2019-03-24] MEDS ORDERED: LEVOFLOXACIN 500 MG/D5W 100 ML IV SCH (17:00)
--- NOTE | 2019-03-24 17:16 | NUR ---
DR. MUNOZ IN UNIT: DR. MUNOZ IN UNIT, AWARE OF WBC-0.3, PLT-27, AND ABSOLUTE NEUTROPHILS-0.2
[2019-03-24] MEDS ORDERED: FILGRASTIM Non-Formulary 0.48 MG/VIAL SUBCUT SCH (17:30)
--- NOTE | 2019-03-24 18:39 | NUR ---
NG TUBE ORDER: PER DR. MAY HOLD NG TUBE INSERTION ORDER UNTIL PATIENT IS MORE STABLE.
--- NOTE | 2019-03-24 19:06 | NUR ---
UROLOGIST/INSURANCE: DR. NABEEL FORD IN UNIT, MADE AWARE THAT PATIENT HAD A FEW UNSUCCESSFUL ATTEMPTS OF SANDERS CATH INSERTION AND BLADDER SCAN DONE AND RESULT OF 348ML OF UNIT NOTED. PER DR. FORD AWARE THAT DR. DUGAN'S (UROLOGIST) OFFICE DOES NOT ACCEPT PATIENT'S INSURANCE. PER DR. FORD "YOU NEED TO TALK TO YOUR ADMINISTRATION/GLOVE CLEANER AND GET A LETTER FOR AUTHORIZATION TO HAVE HIM BE SEEN BY DR. DUGAN'S GROUP". SPOKE TO GLOVE CLEANER CAROLINE AND PER CAROLINE "OKAY".
--- NOTE | 2019-03-24 19:10 | NUR ---
OPENING NOTE SBAR REPORT RECEIVED FROM EUGENIO FAM. CARE ASSUMED. PT LAYING IN BED INTUBATED. ETT 6.5 LIP LINE 25. VENT SETTING AC 30 TIDAL VOLUME 500, FiO2 100%. PT TOLERATING SETTING. PT SINUS LUDA ON MONITOR. PT EXTREMITIES COLD AND MOTTLED. PT HAS UPPER RIGHT FOREARM 20 G IV RUNNING LEELA-SYNEPHRINE @ 360 MCG/KG/MIN, LEVOPHED @ 40 MCG/KG/MIN, AND DOPAMINE @ 30 MCG/KG/MIN. PT HAS LOWER RIGHT FOREARM 20G IV RUNNING D5/NS @ 100ML/HR. PT 1+ PITTING EDEMA TO BILATERAL UPPER AND LOWER EXTREMITIES. RADIAL PULSES WEAK. PEDAL PULSES OBTAINED WITH DOPPLER. ABDOMEN SOFT NONDISTENDED. BOWEL SOUNDS HYPOACTIVE. PT INCONTINENT. SKIN INTACT. REDNESS TO SACRUM WITH FOAM DRESSING IN PLACE. BED LOCKED IN LOWEST POSITION. SAFETY PRECAUTIONS IN PLACE. CALL LIGHT WITHIN REACH. WILL CONTINUE TO MONITOR.
[2019-03-24 20:13] LABS: INR 2.4 (0.80-1.20); PROTHROMBIN TIME 23.7 SECS (9.5-12.5)
[2019-03-24] MEDS ORDERED: PHENYLEPHRINE HCL 10 MG/ML VIAL (NEOSYNEPHRINE) ONE ×3 (20:55→23:52)
--- NOTE | 2019-03-24 21:40 | NUR ---
SANDERS CATH: # 14 FR Sanders catheter with 10 cc bulb inserted with use of sterile technique. Bulb inflated with 10 cc sterile water. Immediate return of 100 cc yellow urine noted. Bedside drainage bag placed below level of bladder. Pt tolerated procedure well.
--- NOTE | 2019-03-24 22:00 | NUR ---
DR SOCORRO Turner notified regarding change in pt's condition. Pt on vent and is gasping. No orders received.
--- NOTE | 2019-03-24 23:00 | NUR ---
RN UPDATE PICC RN SANTHOSH AT BEDSIDE. PICC LINE INSERTED. CHEST XR TAKEN. SANTHOSH FAM STATES PICC LINE OK TO USE. PT TOLERATED PROCEDURE WELL. WILL CONTINUE TO MONITOR.
[2019-03-25] VITALS (13 sets, daily range): BP systolic 43–125
[2019-03-25] MEDS: PIPERACILLIN/TAZO 3.375/DEX-IS 50 ML IV SCH ×3 (00:25→12:19)
[2019-03-25] MEDS: PHENYLEPHRINE HCL 30 MG in NS 247 ML IV PRN ×9 (00:25→13:16)
[2019-03-25] MEDS: DOPamine PREMIX 250 ML IV PRN ×3 (00:27→09:46)
[2019-03-25] MEDS: NOREPINEPHRINE BITARTRATE 8 MG in D5W 242 ML IV PRN ×4 (00:30→09:48)
[2019-03-25] MEDS ORDERED: PHENYLEPHRINE HCL 10 MG/ML VIAL (NEOSYNEPHRINE) ONE ×3 (01:21→06:43)
[2019-03-25] MEDS ORDERED: NOREPINEPHRINE 4 MG/4 ML VIAL IV ONE ×2 (02:46→06:25)
[2019-03-25] MEDS: D5NS 1,000 ML IV SCH (05:15)
[2019-03-25] MEDS: NORMAL SALINE 5 ML DISP.SYRIN IVF SCH ×2 (05:18→13:14)
[2019-03-25] MEDS: HYDROCORTISONE SOD SUCC 100 MG/2 ML VIAL IVP SCH ×2 (05:19→13:24)
[2019-03-25] MEDS: LEVOTHYROXINE SODIUM 0.025 MG TABLET PO SCH (06:41)
[2019-03-25 07:16] LABS: ALBUMIN 0.8 g/dL (3.4-4.8); C-REACTIVE PROTEIN QUANT 13.1 mg/dL (0-0.5); CREATININE 0.81 mg/dL (0.55-1.30); POTASSIUM 3.3 mmol/L (3.5-5.1); TOTAL BILIRUBIN 1.1 mg/dL (0.0-1.0)
--- NOTE | 2019-03-25 07:20 | NUR ---
CLOSING NOTE PT LAYING IN BED INTUBATED. ETT 6.5 LIP LINE 25. VENT SETTING AC 30 TIDAL VOLUME 500, FiO2 100%. PT TOLERATING SETTING. PT SINUS LUDA ON MONITOR. PT EXTREMITIES COLD AND MOTTLED. PT HAS UPPER RIGHT ARM PICC LINE RUNNING LEELA-SYNEPHRINE @ 360 MCG/KG/MIN, LEVOPHED @ 40 MCG/KG/MIN, DOPAMINE @ 30 MCG/KG/MIN AND D5/NS @ 100ML/HR. PT 1+ PITTING EDEMA TO BILATERAL UPPER AND LOWER EXTREMITIES. RADIAL PULSES WEAK. PEDAL PULSES OBTAINED WITH DOPPLER. ABDOMEN SOFT NONDISTENDED. BOWEL SOUNDS HYPOACTIVE. SANDERS CATHETER IN PLACE FLOWING TO GRAVITY. SKIN INTACT. REDNESS TO SACRUM WITH FOAM DRESSING IN PLACE. BED LOCKED IN LOWEST POSITION. SAFETY PRECAUTIONS IN PLACE. CALL LIGHT WITHIN REACH. SBAR REPORT GIVEN TO JASVIR FAM. CARE ENDORSED.
--- NOTE | 2019-03-25 07:30 | NUR ---
Opening Note Received plan of care via sbar from endorsing nurse Rosamaria FAM. Completed patient round.
[2019-03-25 08:25] LABS: CALCIUM 5.7 mg/dL (8.4-11.0)
[2019-03-25] MEDS ORDERED: TBO-FILGRASTIM 480 MCG/0.8 ML SYRINGE SUBCUT ONE (08:30)
--- NOTE | 2019-03-25 08:41 | NUR ---
Called Dr. Israel to report critical values. PH 7.034 and PO2 48.6, calcium 5.7 and albumin 0.8. No new orders.
[2019-03-25] MEDS: DOCUSATE SODIUM 100 MG CAPSULE PO SCH (08:51)
[2019-03-25] MEDS: HALOPERIDOL 1 MG TABLET (HALDOL) PO SCH (08:52)
[2019-03-25] MEDS: POLYETHYLENE GLYCOL 3350, 17 GM/ POWD.PACK PO SCH (08:53)
[2019-03-25] MEDS: SERTRALINE HCL 50 MG TABLET PO SCH (08:53)
[2019-03-25 09:25] LABS: BASOPHILS % (AUTO) 0.9 % (0.0-2.0); EOSINOPHILS % (AUTO) 0.4 % (0.0-4.0); HEMATOCRIT 27.3 % (36-54); HEMOGLOBIN 9.2 g/dL (14.0-18.0); LYMPHOCYTES % (AUTO) 4.9 % (20.5-51.5); MEAN CORPUSCULAR HEMOGLOBIN 34 pg (27-31); MEAN CORPUSCULAR HGB CONC 34 % (32-36); MEAN CORPUSCULAR VOLUME 100 fL (79.0-98.0); MONOCYTES % (AUTO) 0.6 % (1.7-9.3); RED BLOOD CELL COUNT(AUTO) 2.74 MIL/uL (4.2-6.2); RED CELL DISTRIBUTION WIDTH 15.5 % (9.0-15.0)
[2019-03-25 09:43] LABS: NEUTROPHILS # (AUTO) 0.5 K/uL (1.8-7.7); PLATELET COUNT (AUTO) 6 K/uL (130-430); WHITE BLOOD COUNT (AUTO) 0.5 K/uL (4.8-10.8)
[2019-03-25 09:44] LABS: NEUTROPHILS % (AUTO) 93.2 % (40.0-70.0)
[2019-03-25 10:00] LABS: INR 2.9 (0.80-1.20); PROTHROMBIN TIME 28.7 SECS (9.5-12.5)
[2019-03-25 10:23] LABS: ERYTHROCYTE SEDIMENTATION RATE 5 MM/HR (0-15)
--- NOTE | 2019-03-25 10:30 | NUR ---
Dr. Soto paged and called back. Reported Platelet and WBC. No new orders.
[2019-03-25] MEDS ORDERED: KCL 40 mEq in 100 mL (PREMIX) 100 ML IV ONE (10:45)
--- NOTE | 2019-03-25 11:45 | NUR ---
Dr. Israel at bedside. Spoke to family about DNR and family agreed. Code status signed for DNR.
[2019-03-25] MEDS ORDERED: NOREPINEPHRINE BITARTRATE 16 MG in D5W 234 ML IV PRN (12:00)
--- NOTE | 2019-03-25 12:45 | NUR ---
Dr. Jones at bedside. Reported low WBC and Platelet. Dr. Jones offered the family transfusion which they refused. No new orders.
--- NOTE | 2019-03-25 13:36 | NUR ---
Pronouncement of Pt is a known DNR with a signed order from physician on the chart. Family present at time of expiration.Pt noted to be in asystole on monitor. No pulse palpable. No spontaneous resp noted. No chest rise noted. No audible heartbeat heard. Pupils fixed and dilated 5mm. Pt pronounced by myself and Vicente Vargas RN.
--- NOTE | 2019-03-25 13:45 | NUR ---
Patient with agonal breathing. Witness patient in VFIB and noted no pulse. Used doppler to confirm. No pulse noted. Charge nurse also confirmed no pulse. Time of pronounced at 1335. Family at bedside. Offered tissue and ordered comfort tray from dietary. Addendum: 03/25/19 at 1607 by Vicente Vargas RN Pt noted to be in asystole on monitor. No pulse palpable. No spontaneous resp noted. No chest rise noted. No audible heartbeat heard. Pupils fixed and dilated 5mm. Pt pronounced by myself and Vicente Vargas RN.
[2019-03-25 14:22] LABS: FOLATE (FOLIC ACID) <2.0 ng/mL (>3.0)
[2019-03-25] MEDS ORDERED: FILGRASTIM Non-Formulary 0.48 MG/VIAL SUBCUT SCH (17:00)
[2019-03-26] MEDS ORDERED: TBO-FILGRASTIM 480 MCG/0.8 ML SYRINGE SUBCUT SCH (17:00)
--- NOTE | 2019-03-27 13:57 | NUR ---
PHYSICAL THERAPY CO-SIGN The Physical Therapy Progress Notes documented by Grain And Yeast Plants Supervisor have been reviewed. Reviewed/Co-Signed by: Rupert Portillo PT Documentation Done by: SAM SANTANA PTA Addendum: 03/27/19 at 1401 by Rupert Portillo PT Amended: Links added.
--- NOTE | 2019-03-27 13:58 | NUR ---
PHYSICAL THERAPY CO-SIGN The Physical Therapy Progress Notes documented by Trailer Rental Clerk have been reviewed. Reviewed/Co-Signed by: Rupert Portillo, PT Documentation Done by:SAM PTA Addendum: 03/27/19 at 1401 by Rupert Portillo PT Amended: Links added.
--- NOTE | 2019-03-27 13:59 | NUR ---
PHYSICAL THERAPY CO-SIGN The Physical Therapy Progress Notes documented by Compensation Specialist have been reviewed. Reviewed/Co-Signed by: Rupert Portillo PT Documentation Done by: SAM SANTANA PTA Addendum: 03/27/19 at 1401 by Rupert Portillo PT Amended: Links added.
--- NOTE | 2019-03-27 14:00 | NUR ---
PHYSICAL THERAPY CO-SIGN The Physical Therapy Progress Notes documented by Motor And Controls Tester have been reviewed. Reviewed/Co-Signed by: Rupert Portillo PT Documentation Done by: SAM SANTANA PTA Addendum: 03/27/19 at 1401 by Rupert Portillo PT Amended: Links added.
== END 2019-03-25 13:35 | disposition expired | DRG 871 ==
LOC: SED 11:32 → STU 16:10 → SIC 03-23 15:13
PROVIDERS: ADMIT Preventive Medicine Preventive Medicine/Occupational Environmental Medicine; ATTEND Preventive Medicine Preventive Medicine/Occupational Environmental Medicine
PROC: 30233R1 Transfusion of Nonautologous Platelets into Peripheral Vein, Percutaneous Approach (ICD-10-PCS; principal; 2019-03-22)
PROC: 5A09357 Assistance with Respiratory Ventilation, Less than 24 Consecutive Hours, Continuous Positive Airway Pressure (ICD-10-PCS; 2019-03-23)
PROC: 5A1945Z Respiratory Ventilation, 24-96 Consecutive Hours (ICD-10-PCS; 2019-03-23)
PROC: 0BH17EZ Insertion of Endotracheal Airway into Trachea, Via Natural or Artificial Opening (ICD-10-PCS; 2019-03-23)
PROC: 02HV33Z Insertion of Infusion Device into Superior Vena Cava, Percutaneous Approach (ICD-10-PCS; 2019-03-24)
PROC: B548ZZA Ultrasonography of Superior Vena Cava, Guidance (ICD-10-PCS; 2019-03-24)
DX: A41.50 Gram-negative sepsis, unspecified (principal); J96.01 Acute respiratory failure with hypoxia; R65.21 Severe sepsis with septic shock; E43 Unspecified severe protein-calorie malnutrition; J69.0 Pneumonitis due to inhalation of food and vomit; N17.0 Acute kidney failure with tubular necrosis; G10 Huntington's disease; E87.1 Hypo-osmolality and hyponatremia; Z68.1 Body mass index [BMI] 19.9 or less, adult; D61.818 Other pancytopenia; E83.52 Hypercalcemia; Z66 Do not resuscitate; E03.9 Hypothyroidism, unspecified; E83.51 Hypocalcemia; K72.90 Hepatic failure, unspecified without coma; E87.6 Hypokalemia; I10 Essential (primary) hypertension; K59.00 Constipation, unspecified; R13.10 Dysphagia, unspecified; R73.9 Hyperglycemia, unspecified; Z79.899 Other long term (current) drug therapy
CPT/HCPCS: 36415; 36600; 71045; 74230; 76700-TC; 80048; 80053; 80074; 80076; 81000-TC; 82103; 82105; 82607; 82728; 82746; 82803-TC; 82962; 83516; 83540-TC; 83550-TC; 83605; 83880; 84484; 85007; 85025; 85027; 85384-TC; 85610-TC; 85651-TC; 85730-TC; 86038; 86140; 86256; 86886; 86900; 86901; 87040-TC; 87086; 87186-TC; 92610-GN; 92611-GN; 93005; 94002; 94003; 94660; 96360; 97110-GP; 97112-GP; 97530-GP; 99285; C1751; G0378; G0480; J0330; J1265; J1447; J1720; J1956; J2370; J2543; J3370; J3480; J3490; J7030; J7040; J7042; J7050; J7060; P9034; Q9964; Q9967